=== PATIENT | male | born 1970 | race Caucasian/White ===

== ENCOUNTER 2017-07-08 19:44 | Emergency (ER) | payer MEDICARE, BC, MEDICAID ==
[~2017-07-08] VITALS: Ht 167.6 cm; Wt 68.0 kg
[~2017-07-08 19:44] MED LIST: ABILIF5PT PO; ACET500T68 PO; ACET650S5 PO; ALEN70SO4 PO; AMOX-362 PO; ATIVAN; BAC10 PO; BACDS PO; BACL-1 PO; BACLOFEN; BACOUD TP; CALC-1 PO; CALC-479 PO; CALC-515 PO; CEPH-13 PO; CEPH500C24 PO; CIPR-344 PO; CIPR500S3 PO; CITRUCEL; CLOB15CR22 TP; COD28PAS TP; DEN60I SUBQ; DEXL60CA6 PO; DILANTIN; DOCU-416 PO; DOCU50LI PO; DOCUSATE SODIUM; DULO60CA7; EMOL454O; EYE DROPS; FERR15DR22 PO; FERROUS SULFATE; FLU20 PO; FOL1 PO; FOLI-68 PO; FOLI0.4T56 PO; GOLYTE PO; GRANULEX; GUAI-537 PO; HYDR-4309 PO; HYDR45CR TOP; IBUP600T22 PO; IMI25 PO; LACT-213 PO; LAMO200T46 PO; LAMO25TA64 PO; LIDO20VI IJ; LOPE2CAP88 PO; LOR5 PO; LORA-1455 PO; LORA-630 PO; LYTE60SP MM; MENT118G TOP; METH454P5 PO; METH4TAB57 PO; NAPR220C11 PO; NITR-105 PO; OCEAN NASAL SPRAY; OMEP-125 PO; OMEP40CA48 PO; ONDA4TAB PO; ONDA4TAB9 PO; ONDA4TAB97 PO; OXY39T TD; OXYB10TA21 PO; OXYB5SYR7 PO; OXYBUTIN; PANT40TA65 PO; PETR99OI2 TP; PHEN200T32 PO; PHEN32.417 PO; PHENOBARB; POLY17PO25 PO; PROZAC; SALI44.34 MM; SODI30SP6 NS; SUCR1TAB85 PO; SYSTANEPT OD; TOLNAFTATE TOP; TOLT2TAB5 PO; TRA50 PO; TRAM-420 PO; TRAMADOL; TUMS; [UNRECOGNIZED DRUG - CODE] MM; [UNRECOGNIZED DRUG - CODE] PO; [UNRECOGNIZED DRUG - CODE] PO; [UNRECOGNIZED DRUG - CODE] PO; [UNRECOGNIZED DRUG - OTHER]; [UNRECOGNIZED DRUG - OTHER]
--- NOTE | 2017-07-08 19:47 | ER Report ---
History and Physical Time Seen By MD: 19:46 HPI/ROS CHIEF COMPLAINT: Urinary symptoms HISTORY OF PRESENT ILLNESS: 46-year-old male presents with urinary symptoms denies hematuria or back pain flank pain abdominal pain fevers Chills nausea or vomiting. He arrives in a wheelchair and has limited mobility of his lower extremities. REVIEW OF SYSTEMS: Respiratory: No cough, no dyspnea. Cardiovascular: No chest pain, no palpitations. Gastrointestinal: No vomiting, no abdominal pain. Musculoskeletal: No back pain. Allergies: Coded Allergies: divalproex sodium (Verified Allergy, Unknown, 05/09/17) Home Meds Active Scripts Sucralfate (CARAFATE) 1 Gm Tablet, 1 GM PO QID, #60 TAB Take before meals and at bedtime. Crush the tablet and mix with water before taking. Prov:CHRISTIAN BENAVIDES ORNAMENTAL METAL ERECTOR APPRENTICE 05/09/17 Reported Medications Docusate Sodium (SILACE) 50 Mg/5 Ml Liquid, 10 MG PO 02/21/17 Duloxetine HCl (Duloxetine HCl) 60 Mg Capsule.dr, 30 MG QDAY 02/21/17 Saliva Stimulant Agents Comb.3 (BIOTENE MOISTURIZING MOUTH) 44.3 Ml Ingalls, 44.3 ML MM, SPRAY 02/21/17 Oxybutynin Chloride (DITROPAN XL) 10 Mg Tab.er.24, 10 MG PO QDAY Y for BLADDER SPASMS, #30 TAB 11/13/16 Phenazopyridine Hcl (PHENAZOPYRIDINE HCL) 200 Mg Tablet, 200 MG PO TID Y for DISCOMFORT, #30 TAB 11/13/16 Docusate Sodium (COLACE) 100 Mg Capsule, 100 MG PO BID, #30 CAPSULE 11/13/16 Cod Liver Oil/Zinc Oxide (DESITIN DIAPER RASH 40% PASTE) 28 Gm Paste..g., 28 GM TP PRN 11/10/16 Lidocaine Hcl/Epinephrine (LIDOCAINE 2%-EPI 1:100,000) 20 Ml Vial, 15 ML IJ, VIAL 11/10/16 Polyethylene Glycol 3350 (MIRALAX) 17 Gm Powd.pack, 17 GM PO QDAY, PKT 11/10/16 Acetaminophen (TYLENOL EXTRA STRENGTH) 500 Mg Tablet, 500 MG PO, TAB 11/10/16 Dexlansoprazole (DEXILANT) 60 Mg Cap, 60 MG PO BID 11/10/16 Emollient Combination No.97 (Aquaphilic) 454 Gm Oint...g., QDAY 11/10/16 Polyeth Glycol/Propylene Glyco (SYSTANE 0.3-0.4% EYE DROPS) 0.05 Ml Soln, 0.05 ML OD DRY EYES 07/27/15 Docusate Sodium (SILACE) 50 Mg/5 Ml Liquid, 50 MG PO QDAY 07/27/15 Guaifenesin/Dm/Pseudoephedrine (ROBAFEN CF SYRUP) 118 Ml Syrup, 20 ML PO Y for COUGH 07/27/15 Sodium Chloride (SALINE NASAL SPRAY) 30 Ml Ingalls, 30 ML NS PRN Y for AD, SPRAY 07/27/15 Naproxen Sodium (NAPROXEN SODIUM) 220 Mg Capsule, 220 MG PO Q12H Y for PAIN, CAPSULE 07/27/15 Hydrocortisone Butyrate/Emoll (HYDROCORT BUTY 0.1% LIPID CRM) 45 Gm Cream..g., TOP Y for ITCHING 07/26/15 Lactose-Free Food (ENSURE LIQUID) 237 Ml Liquid, 237 ML PO DAILY 07/26/15 Clobetasol Propionate/Emoll (CLOBETASOL EMOLLIENT 0.05% CRM) 15 Gm Cream..g., 0 TP BID 07/26/15 Methylcellulose (With Sugar) (CITRUCEL POWDER) 454 Gm Powder, 454 GM PO QDAY 07/26/15 Aripiprazole (ABILIFY) 5 Mg Tablet, 5 MG PO QDAY, #10 TAB 07/26/15 Loperamide Hcl (LOPERAMIDE) 2 Mg Capsule, 2 MG PO Y for DIARRHEA, CAPSULE 07/26/15 Amoxicillin (AMOXICILLIN) 500 Mg Capsule, 4 CAP PO Q8H Y for TX, #15 CAPSULE 07/26/15 [Aftate] No Conflict Check, SPRAYS TOP Y for RASH 07/26/15 Denosumab (PROLIA) 60 Mg/1 Ml Injs, 60 MG SUBQ [id number] 10/15/14 Lorazepam (ATIVAN) 0.5 Mg Tablet, 0.5 MG PO Q4-6H Y for SEIZURE 10/15/14 Calcium Carbonate/Vitamin D3 (CALTRATE 600 + D TABLET) 1 Each Tablet, 1 EACH PO BID 10/15/14 Folic Acid (FOLIC ACID) 1 Mg Tablet, 1 MG PO QDAY, TAB 5/14/15 Menthol (BIOFREEZE) 118 Ml Gel..ml., 1 GEL TOP QDAY Y for pain 09/26/14 Baclofen (BACLOFEN) 10 Mg Tablet, 10 MG PO TID, #30 TAB TAKE 2 TABLETS BY MOUTH THREE TIMES A DAY 09/26/14 Bacitracin (BACITRACIN ZINC) 0.9 Gm Oint, 0.9 GM TP QDAY Y for wounds 09/26/14 Petrolatum,White (AQUAPHOR) 99 Gm Oint...g., 99 GM TP BID Y for dry skin 09/26/14 Acetaminophen (ACETAMINOPHEN) 650 Mg/20.3 Ml Solution, 650 MG PO Q4-6H Y for PAIN, ML 09/26/14 Saliva Stimulant Agents Comb.2 (BIOTENE ORALBALANCE) 44.3 Ml Liquid, 44.3 ML MM 04/30/13 Lamotrigine (LAMICTAL) 200 Mg Tablet, 300 MG PO BID 01/14/13 Oxybutynin (Oxytrol) 1 Patch.bwk Patch.tdsw, 1 PATCH.BWK TD, 0 Refills 06/26/11 Phenobarbital (Phenobarbital) 32.4 Mg Tablet, 1 TAB PO QAM, 0 Refills 06/26/11 Discontinued Reported Medications Nitrofurantoin Monohyd/M-Cryst (MACROBID 100 MG CAPSULE) 100 Mg Capsule, 100 MG PO BID for 5 Days, CAPSULE 11/13/16 Hydrocodone Bit/Acetaminophen (NORCO 5-325 TABLET) 1 Each Tablet, 1 EACH PO Q6H Y for PAIN, #20 TAB 11/13/16 Ferrous Sulfate (FERROUS SULFATE) 15 Mg/1 Ml Drops, PO 10/15/14 Fluoxetine Hcl (Prozac) 20 Mg Cap, 4 CAP PO QDAY, 0 Refills 06/26/11 Discontinued Scripts Omeprazole (OMEPRAZOLE) 40 Mg Capsule.dr, 40 MG PO QDAY, #30 CAP Prov:CHRISTIAN BENAVIDES ORNAMENTAL METAL ERECTOR APPRENTICE 05/09/17 Ondansetron Hcl (ZOFRAN) 4 Mg Tablet, 4 MG PO Q6H Y for NAUSEA/VOMITING, #20 Prov:JORGE MARIE DO 02/04/16 Hx Smoking: No Smoking Status: Never Smoker Exposure to Second Hand Smoke?: No Hx Substance Use Disorder: No Hx Alcohol Use: No Constitutional Vital Sign - Last 24 Hours 07/08/17 07/08/17 07/08/17 07/08/17 19:44 19:56 19:57 19:59 Temp 100.3 Pulse ??? 106 107 Resp 16 B/P (MAP) 134/83 134/83 (100) Pulse Ox 96 95 O2 Delivery Room Air 07/08/17 07/08/17 07/08/17 07/08/17 20:14 20:29 20:31 20:44 Pulse 98 100 105 Resp 18 13 27 B/P (MAP) 121/82 (95) Pulse Ox 93 94 94 07/08/17 07/08/17 07/08/17 07/08/17 20:59 21:00 21:14 21:29 Pulse 105 101 108 Resp 16 18 B/P (MAP) 123/80 (94) Pulse Ox 93 95 07/08/17 07/08/17 07/08/17 07/08/17 21:30 21:35 22:00 22:04 Temp 99.8 Pulse 114 B/P (MAP) 121/80 (94) 123/75 (91) Pulse Ox 87 07/08/17 07/08/17 07/08/17 22:05 22:30 22:35 Pulse 96 108 Resp 9 B/P (MAP) 136/73 (94) Pulse Ox 88 94 Intake and Output 07/08/17 07/08/17 07/09/17 15:00 23:00 07:00 Intake Total 1000 ml Balance 1000 ml Physical Exam General Appearance: The patient is alert, has no immediate need for airway protection and no current signs of toxicity. Appears in no acute distress Eyes: Pupils equal and round no injection. Respiratory: Chest is non tender, lungs are clear to auscultation. Cardiac: regular rate and rhythm no murmurs gallops or rubs Gastrointestinal: Abdomen is soft and non tender, no masses, bowel sounds normal. Musculoskeletal: Neck: Neck is supple and non tender. Extremities have full range of motion and are non tender. Skin: No rashes or lesions. Neuro: A baseline DIFFERENTIAL DIAGNOSIS: After history and physical exam differential diagnosis was considered for tract infection no signs of pyelo-, sepsis, urosepsis or other serious disease Medical Decision Making Data Points Result Diagram: 07/08/17202107/08/172021 Laboratory Hematology Test 07/08/17 20:22 07/08/17 21:30 07/08/17 21:45 Red Blood Count 4.13 M/uL (4.00-5.60) Mean Corpuscular Volume 83.4 fL (80.0-96.0) Mean Corpuscular Hemoglobin 27.5 pg (26.0-33.0) Mean Corpuscular Hemoglobin Concent 33.0 g/dL (32.0-36.0) Red Cell Distribution Width 13.8 % (11.5-14.5) Mean Platelet Volume 6.9 fL (7.2-11.1) Neutrophils (%) (Auto) 65.6 % (39.4-72.5) Lymphocytes (%) (Auto) 18.7 % (17.6-49.6) Monocytes (%) (Auto) 7.6 % (4.1-12.4) Eosinophils (%) (Auto) 7.3 % (0.4-6.7) Basophils (%) (Auto) 0.8 % (0.3-1.4) Nucleated RBC Relative Count (auto) 0.0 /100WBC Neutrophils # (Auto) 4.9 K/uL (2.0-7.4) Lymphocytes # (Auto) 1.4 K/uL (1.3-3.6) Monocytes # (Auto) 0.6 K/uL (0.3-1.0) Eosinophils # (Auto) 0.5 K/uL (0.0-0.5) Basophils # (Auto) 0.1 K/uL (0.0-0.1) Nucleated RBC Absolute Count (auto) 0.00 K/uL Sodium Level 138 mmol/L (137-145) Potassium Level 4.3 mmol/L (3.5-5.0) Chloride Level 103 mmol/L (98-107) Carbon Dioxide Level 27 mmol/L (22-30) Blood Urea Nitrogen 14 mg/dl (9-21) Creatinine 0.80 mg/dl (0.66-1.25) Glomerular Filtration Rate Calc > 60.0 Random Glucose 90 mg/dl (75-110) Calcium Level 8.2 mg/dl (8.4-10.2) Urine Color Yellow Urine Clarity Clear Urine pH 6.0 pH (4.8-9.5) Urine Specific Raymond 1.023 Urine Protein Negative mg/dL (NEGATIVE) Urine Glucose (UA) Negative mg/dL (NEGATIVE) Urine Ketones Negative mg/dL (NEGATIVE) Urine Blood Negative (NEGATIVE) Urine Nitrite Negative (NEGATIVE) Urine Bilirubin Negative (NEGATIVE) Urine Urobilinogen Negative mg/dL (0.2-1.9) Urine Leukocyte Esterase Negative (NEGATIVE) Urine RBC <1 /HPF (0-2/HPF) Urine WBC 2 /HPF (0-5/HPF) Urine Squamous Epithelial Cells None /LPF (NONE-FEW) Urine Bacteria Negative /HPF (NONE-FEW) Urine Mucus None /HPF (NONE-FEW) Stool Occult Blood (IFOB) Positive (NEGATIVE) Chemistry Test 07/08/17 20:22 07/08/17 21:30 07/08/17 21:45 White Blood Count 7.5 k/uL (4.5-11.0) Red Blood Count 4.13 M/uL (4.00-5.60) Hemoglobin 11.3 g/dL (14.0-18.0) Hematocrit 34.4 % (42.0-52.0) Mean Corpuscular Volume 83.4 fL (80.0-96.0) Mean Corpuscular Hemoglobin 27.5 pg (26.0-33.0) Mean Corpuscular Hemoglobin Concent 33.0 g/dL (32.0-36.0) Red Cell Distribution Width 13.8 % (11.5-14.5) Platelet Count 322 K/uL (150-450) Mean Platelet Volume 6.9 fL (7.2-11.1) Neutrophils (%) (Auto) 65.6 % (39.4-72.5) Lymphocytes (%) (Auto) 18.7 % (17.6-49.6) Monocytes (%) (Auto) 7.6 % (4.1-12.4) Eosinophils (%) (Auto) 7.3 % (0.4-6.7) Basophils (%) (Auto) 0.8 % (0.3-1.4) Nucleated RBC Relative Count (auto) 0.0 /100WBC Neutrophils # (Auto) 4.9 K/uL (2.0-7.4) Lymphocytes # (Auto) 1.4 K/uL (1.3-3.6) Monocytes # (Auto) 0.6 K/uL (0.3-1.0) Eosinophils # (Auto) 0.5 K/uL (0.0-0.5) Basophils # (Auto) 0.1 K/uL (0.0-0.1) Nucleated RBC Absolute Count (auto) 0.00 K/uL Glomerular Filtration Rate Calc > 60.0 Calcium Level 8.2 mg/dl (8.4-10.2) Urine Color Yellow Urine Clarity Clear Urine pH 6.0 pH (4.8-9.5) Urine Specific Raymond 1.023 Urine Protein Negative mg/dL (NEGATIVE) Urine Glucose (UA) Negative mg/dL (NEGATIVE) Urine Ketones Negative mg/dL (NEGATIVE) Urine Blood Negative (NEGATIVE) Urine Nitrite Negative (NEGATIVE) Urine Bilirubin Negative (NEGATIVE) Urine Urobilinogen Negative mg/dL (0.2-1.9) Urine Leukocyte Esterase Negative (NEGATIVE) Urine RBC <1 /HPF (0-2/HPF) Urine WBC 2 /HPF (0-5/HPF) Urine Squamous Epithelial Cells None /LPF (NONE-FEW) Urine Bacteria Negative /HPF (NONE-FEW) Urine Mucus None /HPF (NONE-FEW) Stool Occult Blood (IFOB) Positive (NEGATIVE) Urinalysis Test 07/08/17 21:30 Urine Color Yellow Urine Clarity Clear Urine pH 6.0 pH (4.8-9.5) Urine Specific Raymond 1.023 Urine Protein Negative mg/dL (NEGATIVE) Urine Glucose (UA) Negative mg/dL (NEGATIVE) Urine Ketones Negative mg/dL (NEGATIVE) Urine Blood Negative (NEGATIVE) Urine Nitrite Negative (NEGATIVE) Urine Bilirubin Negative (NEGATIVE) Urine Urobilinogen Negative mg/dL (0.2-1.9) Urine Leukocyte Esterase Negative (NEGATIVE) Urine RBC <1 /HPF (0-2/HPF) Urine WBC 2 /HPF (0-5/HPF) Urine Squamous Epithelial Cells None /LPF (NONE-FEW) Urine Bacteria Negative /HPF (NONE-FEW) Urine Mucus None /HPF (NONE-FEW) ED Course/Re-evaluation ED Course Plan of care agreed-upon prior to orders placed. 07/08/2017 10:51:35 pm cased discussed with Dr. Alfaro surgeon semiconductor assembler who agrees with plan for outpatient referral for endoscopy as needed given his guaiac positivity and hemoglobin dropped from 14-11 since May. This was discussed with the patient who agrees to contact Dr. Cano's office as directed as soon as possible. Vitals are stable for discharge. Lab called fungal culture will be done specimen not appropriate for staining ROCIO order will be canceled Re-evaluation 07/08/2017 9:59:53 pm patient doing fine no concerns or complaints VICTORIA was performed and stool was negative for melena sent to lab for guaiac testing. Urinalysis was reviewed fungal stain and culture added. Decision to Disposition Date: Jul 08, 2017 Decision to Disposition Time: 22:53 Depart Departure Latest Vital Signs Vital Signs Date Time Temp Pulse Resp B/P (MAP) Pulse Ox O2 Delivery O2 Flow Rate FiO2 07/08/17 22:35 108 9 94 07/08/17 22:30 136/73 (94) 07/08/17 22:04 99.8 07/08/17 19:56 Room Air Impression: Primary Impression: Occult GI bleeding Additional Impression: Dysuria Condition: Improved Disposition: HOME OR SELF-CARE Referrals: PATRICK JOSE DO (PCP) AMOS CANO MD 1 Day New Scripts Nitrofurantoin Monohyd/M-Cryst (MACROBID 100 MG CAPSULE) 100 Mg Capsule 100 MG PO BID for 10 Days, #20 CAPSULE Prov: MARILEE LEE MD 07/08/17 Patient Instructions: Gastrointestinal Bleeding (DC) Problem Qualifiers MARILEE LEE MD Jul 08, 2017 19:47
[2017-07-08] MEDS ORDERED: NS(*) 0.9% 1000 ML BAG 1,000 ML IV ONE (20:15)
[2017-07-08 20:35] LABS: PLATELET COUNT, AUTOMATED 322 K/uL (150-450)
[2017-07-08] MEDS ORDERED: NITR-105 PO (23:00)
[2017-07-08 23:11] VITALS: BP 138/82
== END 2017-07-08 23:22 | disposition home or self-care (01) ==
LOC: ER 19:55
DX: K92.2 Gastrointestinal hemorrhage, unspecified (principal)
CPT/HCPCS: 81001; 82274; 85025; 87252; 96360; 96361; 99284; J7030; 82310; 82374; 82435; 82565; 82947; 84132; 84295; 84520

== ENCOUNTER → 2017-07-16 | Outpatient (CLI) | payer MEDICARE, BC, MEDICAID ==
--- NOTE | 2017-07-16 23:14 | RADIOLOGY IMAGING REPORT ---
FACILITY: [facility] PATIENT NAME: Conner Dumont : 1970 MR: [id number] V: [id number] EXAM DATE: ORDERING PHYSICIAN: PATRICK JOSE TECHNOLOGIST: Location: Patient: Conner Dumont : 1970 Visit/Account:[id number] Date of Sevice: 07/16/2017 DEXA Scan Clinical history: Osteoporosis. Comparison: 08/02/2016 LUMBAR SPINE: The bone mineral density (BMD) measured from L1-L4 correlates with a Z-score -0.4 and a T-score of -1 .1 which is osteopenia as defined by the World Health Organization. The corresponding risk of fractu re in the lumbar spine is increased compared with a young adult reference population. Lumbar bone min eral density has increased by 1.2% compared to prior (change of 5% is considered significant). HIP: Bone mineral density (BMD) measured in the left total hip region correlates with a Z-score -1.9 and a T-score of -2.6 which is osteoporosis as defined by the World Health Organization. The correspondin g risk of fracture in the hip is increased compared with a young adult reference population. Hip david ne mineral density has decreased by 10.6% compared to prior. Bone mineral density (BMD) measured in the Femoral Neck region measures 0.727 g/cm2. Impression: 1. Lumbar spine: Osteopenia, no significant change.. 2. Left Hip: Osteoporosis. Hip bone mineral density has significantly decreased compared to prior. 3. Femoral Neck: Bone Mineral Density is 0.727 g/cm2 The next DEXA scan of this patient should include the following sites: L1-L4 and the left hip. FRAX? WHO Fracture Risk Assessment Tool link: <http://www.shef.ac.uk/FRAX/tool.jsp?[email or web address]> PLEASE NOTE: 1) The World Health Organization defines low BMD as follows: T-score Normal > -1 Osteopenia < -1 and > -2.5 Osteoporosis < -2.5 without fractures Established osteoporosis < -2.5 with fractures 2) In general, you may wish to consider: Diagnosis Treatment Follow-up DEXA Normal BMD Prevention 2-3 years Osteopenia Prevention/therapy 1-2 years Osteoporosis Therapy Yearly 3) Fracture risk estimated from the T-score is more accurate for vertebral fractures (often spontane ous) than for hip fractures. Report Dictated By: Kel Bateman MD at 07/16/2017 11:08 PM Report E-Signed By: Kel Bateman MD at 07/16/2017 11:10 PM WSN:[id number]
== END ==
LOC: RAD 07:35
PROVIDERS: ATTEND Family Medicine
DX: M81.8 Other osteoporosis without current pathological fracture (principal); M85.88 Other specified disorders of bone density and structure, other site
CPT/HCPCS: 77080

== ENCOUNTER 2017-07-29 04:03 | Emergency (ER) | payer MEDICARE, BC, MEDICAID ==
--- NOTE | 2017-07-29 04:19 | ER Report ---
History and Physical Time Seen By MD: 04:18 Hx. of Stated Complaint: PT HAD 4 SEIZURES. PT WAS GIVEN 0.5MG LORAZAPAM AROUND 01:00. LAST SEIZURE AROUND 25 MINUTES AGO. HPI/ROS CHIEF COMPLAINT: seizures HISTORY OF PRESENT ILLNESS: This is a 46 year old male. He has been having seizures tonight. 4 seizures since midnight, He has frequent partial seizures with twitching of his arms. He has had 4 grand mal seizures. After the first one , they gave 0.5mg of Ativan which is the protocol if this happens. However, that has not stopped the further seizures. With continued seizures, they are instructed to seek medical attention. It is estimated that breakthrough seizures happen about once a year. He has a headache, but that is normal after his seizures. He has no chest pain or trouble breathing. He has no sore throat, runny nose or cough recently. He denies any pain in his neck, back or extremities. He does indicated he has been having pain with urination. No problems with bowels. No report of fevers. No reported changes in any medications and no missed doses of his Lamictal or his Phenobarbital. There have been some concerns regarding urinary function in the recent past and there is a fungal culture pending at this time, time to completion unknown and can take weeks for this to be done. REVIEW OF SYSTEMS: As above. Allergies: Coded Allergies: divalproex sodium (Verified Allergy, Unknown, 07/29/17) Home Meds Active Scripts Lorazepam (ATIVAN) 0.5 Mg Tablet, 0.5 MG PO Q6H Y for SEIZURE, #12 TAB 0 Refills Prov:VALE MONTGOMERY MD 07/29/17 Cephalexin Monohydrate (CEPHALEXIN) 500 Mg Cap, 500 MG PO TID, #21 CAP 0 Refills Prov:VALE MONTGOMERY MD 07/29/17 Sucralfate (CARAFATE) 1 Gm Tablet, 1 GM PO QID, #60 TAB Take before meals and at bedtime. Crush the tablet and mix with water before taking. Prov:CHRISTIAN BENAVIDES WASHROOM ATTENDANT 05/09/17 Reported Medications Phenazopyridine Hcl (URINARY PAIN RELIEF) 95 Mg Tablet, 95 MG PO TID 07/29/17 Hydrocodone/Acetaminophen 10/300 MG/15 ML (Lortab 10 mg-300 mg/15 ml Elxr) 473 Ml Solution, 10 ML PO PRN 07/29/17 Oxybutynin Chloride (OXYBUTYNIN CHLORIDE) 5 Mg/5 Ml Syrup, 5 MG PO PRN 07/29/17 [Acetaminophen] No Conflict Check 07/29/17 Tramadol Hcl (TRAMADOL HCL) 50 Mg Tablet, 50 MG PO UNKNOWN, TAB 07/29/17 Lidocaine HCl/Pf (Lidocaine 100 mg/5 ml (2%) Syr) 100 Mg/5 Ml (2 %) Syringe, 15 ML PO 07/29/17 Ondansetron (ZOFRAN ODT) 4 Mg Tab.rapdis, 4 MG PO Q6H Y for NAUSEA, TAB.JIMMY 07/29/17 Amoxicillin (AMOXICILLIN) 500 Mg Capsule, 1 CAP PO PRN, #15 CAPSULE 07/29/17 Calcium Carbonate (TUMS) 300 Mg Tab.chew, 2 TAB PO PRN, TAB.CHEW 07/29/17 Duloxetine HCl (Duloxetine HCl) 60 Mg Capsule.dr, 30 MG QDAY 02/21/17 Saliva Stimulant Agents Comb.3 (BIOTENE MOISTURIZING MOUTH) 44.3 Ml [place], 44.3 ML MM, SPRAY 02/21/17 Cod Liver Oil/Zinc Oxide (DESITIN DIAPER RASH 40% PASTE) 28 Gm Paste..g., 28 GM TP PRN 11/10/16 Polyethylene Glycol 3350 (MIRALAX) 17 Gm Powd.pack, 17 GM PO QDAY, PKT 11/10/16 Dexlansoprazole (DEXILANT) 60 Mg Cap., 60 MG PO BID 11/10/16 Emollient Combination No.97 (Aquaphilic) 454 Gm Oint...g., QDAY 11/10/16 Polyeth Glycol/Propylene Glyco (SYSTANE 0.3-0.4% EYE DROPS) 0.05 Ml Soln, 0.05 ML OD DRY EYES 07/27/15 Docusate Sodium (SILACE) 50 Mg/5 Ml Liquid, 50 MG PO QDAY 07/27/15 Guaifenesin/Dm/Pseudoephedrine (ROBAFEN CF SYRUP) 118 Ml Syrup, 20 ML PO Y for COUGH 07/27/15 Sodium Chloride (SALINE NASAL SPRAY) 30 Ml [place], 30 ML NS PRN Y for AD, SPRAY 07/27/15 Naproxen Sodium (NAPROXEN SODIUM) 220 Mg Capsule, 220 MG PO Q12H Y for PAIN, CAPSULE 07/27/15 Hydrocortisone Butyrate/Emoll (HYDROCORT BUTY 0.1% LIPID CRM) 45 Gm Cream..g., TOP Y for ITCHING 07/26/15 Lactose-Free Food (ENSURE LIQUID) 237 Ml Liquid, 237 ML PO DAILY 07/26/15 Clobetasol Propionate/Emoll (CLOBETASOL EMOLLIENT 0.05% CRM) 15 Gm Cream..g., 0 TP BID 07/26/15 Aripiprazole (ABILIFY) 5 Mg Tablet, 5 MG PO QDAY, #10 TAB 07/26/15 Loperamide Hcl (LOPERAMIDE) 2 Mg Capsule, 2 MG PO Y for DIARRHEA, CAPSULE 07/26/15 [Aftate] No Conflict Check, SPRAYS TOP Y for RASH 07/26/15 Denosumab (PROLIA) 60 Mg/1 Ml Injs, 60 MG SUBQ [id number] 10/15/14 Lorazepam (ATIVAN) 0.5 Mg Tablet, 0.5 MG PO Q4-6H Y for SEIZURE 10/15/14 Calcium Carbonate/Vitamin D3 (CALTRATE 600 + D TABLET) 1 Each Tablet, 1 EACH PO BID 10/15/14 Folic Acid (FOLIC ACID) 1 Mg Tablet, 1 MG PO QDAY, TAB 10/15/14 Menthol (BIOFREEZE) 118 Ml Gel..ml., 1 GEL TOP QDAY Y for pain 09/26/14 Baclofen (BACLOFEN) 10 Mg Tablet, 10 MG PO TID, #30 TAB TAKE 2 TABLETS BY MOUTH THREE TIMES A DAY 09/26/14 Bacitracin (BACITRACIN ZINC) 0.9 Gm Oint, 0.9 GM TP QDAY Y for wounds 09/26/14 Acetaminophen (ACETAMINOPHEN) 650 Mg/20.3 Ml Solution, 650 MG PO Q4-6H Y for PAIN, ML 09/26/14 Lamotrigine (LAMICTAL) 200 Mg Tablet, 300 MG PO BID 01/14/13 Oxybutynin (Oxytrol) 1 Patch.bwk Patch.tdsw, 1 PATCH.BWK TD, 0 Refills 06/26/11 Phenobarbital (Phenobarbital) 32.4 Mg Tablet, 1 TAB PO QAM, 0 Refills 1/23/12 Discontinued Reported Medications Docusate Sodium (SILACE) 50 Mg/5 Ml Liquid, 10 MG PO 02/21/17 Oxybutynin Chloride (DITROPAN XL) 10 Mg Tab.er.24, 10 MG PO QDAY Y for BLADDER SPASMS, #30 TAB 11/13/16 Phenazopyridine Hcl (PHENAZOPYRIDINE HCL) 200 Mg Tablet, 200 MG PO TID Y for DISCOMFORT, #30 TAB 11/13/16 Docusate Sodium (COLACE) 100 Mg Capsule, 100 MG PO BID, #30 CAPSULE 11/13/16 Lidocaine Hcl/Epinephrine (LIDOCAINE 2%-EPI 1:100,000) 20 Ml Vial, 15 ML IJ, VIAL 11/10/16 Acetaminophen (TYLENOL EXTRA STRENGTH) 500 Mg Tablet, 500 MG PO, TAB 11/10/16 Methylcellulose (With Sugar) (CITRUCEL POWDER) 454 Gm Powder, 454 GM PO QDAY 07/26/15 Amoxicillin (AMOXICILLIN) 500 Mg Capsule, 4 CAP PO Q8H Y for ND, #15 CAPSULE 07/26/15 Petrolatum,White (AQUAPHOR) 99 Gm Oint...g., 99 GM TP BID Y for dry skin 09/26/14 Saliva Stimulant Agents Comb.2 (BIOTENE ORALBALANCE) 44.3 Ml Liquid, 44.3 ML MM 04/30/13 Discontinued Scripts Nitrofurantoin Monohyd/M-Cryst (MACROBID 100 MG CAPSULE) 100 Mg Capsule, 100 MG PO BID for 10 Days, #20 CAPSULE Prov:MARILEE LEE MD 07/08/17 Past Medical/Surgical History Cerebal palsy, known seizure disorder. Reviewed Nurses Notes: Yes Hx Smoking: No Smoking Status: Never Smoker Exposure to Second Hand Smoke?: No Hx Substance Use Disorder: No Hx Alcohol Use: No Constitutional Vital Sign - Last 24 Hours 07/29/17 07/29/17 07/29/17 07/29/17 04:09 04:10 04:18 05:18 Temp 98.9 Pulse 122 115 109 Resp 18 B/P (MAP) 135/66 (89) 135/66 Pulse Ox 91 95 93 O2 Delivery Room Air 07/29/17 07/29/17 07/29/17 05:33 05:48 05:57 Pulse 124 115 B/P (MAP) 106/91 (96) Pulse Ox 90 95 Physical Exam General Appearance: [The patient is alert.] [No immediate need for airway protection.] [No acute distress.] [Non-toxic in appearance.] [ ] [Eyes:] [Pupils are equal, round.] [Reactive to light.] [No pallor, injection or icterus.] [Extraocular movements are intact.] [ ] [ENT:] [Mucous membranes are moist.] [Normal oral mucosa.] [Posterior oropharynx is normal.] [Normal nasal mucosa.] [Normal tympanic membranes and canals.] [ ] Neck: [Supple and non tender.] [No lymphadenopathy.] Respiratory: [Breathing easily and unlabored.] [Lungs are clear to auscultation. ] [There are no retractions or accessory muscle use.] Cardiovascular: [Regular rate and rhythm.] [No murmurs, gallops or rubs.] [ Normal capillary refill.] [No edema.] [No carotid bruits.] [ ] Gastrointestinal: [Abdomen is soft and non tender.] [Nondistended.] [No rebound or guarding.] [No masses or organomegaly.] [Normal active bowel sounds. ] [No costovertebral angle tenderness with percussion.] [Genitourinary:] [ ] [Neurological:] [Alert and oriented x3.] [Cranial nerves II through XII show no acute deficits on my exam.] [No focal neurologic deficits in the extremities.] [ ] [Skin:] [Warm and dry.] [No rashes.] [Musculoskeletal:] [Extremities are nontender.] [Full range of motion.] [No tenderness in palpation of the cervical, thoracic and lumbar spine.] [ ] [DIFFERENTIAL DIAGNOSIS: After history and physical exam, differential diagnosis was considered for] [ ] Medical Decision Making Data Points Result Diagram: 07/29/1743407/29/17 043 Laboratory Hematology Test 07/29/17 04:35 07/29/17 05:07 Red Blood Count 4.29 M/uL (4.00-5.60) Mean Corpuscular Volume 77.5 fL (80.0-96.0) Mean Corpuscular Hemoglobin 25.0 pg (26.0-33.0) Mean Corpuscular Hemoglobin Concent 32.2 g/dL (32.0-36.0) Red Cell Distribution Width 16.4 % (11.5-14.5) Mean Platelet Volume 6.9 fL (7.2-11.1) Neutrophils (%) (Auto) 72.2 % (39.4-72.5) Lymphocytes (%) (Auto) 18.0 % (17.6-49.6) Monocytes (%) (Auto) 5.0 % (4.1-12.4) Eosinophils (%) (Auto) 4.0 % (0.4-6.7) Basophils (%) (Auto) 0.8 % (0.3-1.4) Nucleated RBC Relative Count (auto) 0.0 /100WBC Neutrophils # (Auto) 5.4 K/uL (2.0-7.4) Lymphocytes # (Auto) 1.3 K/uL (1.3-3.6) Monocytes # (Auto) 0.4 K/uL (0.3-1.0) Eosinophils # (Auto) 0.3 K/uL (0.0-0.5) Basophils # (Auto) 0.1 K/uL (0.0-0.1) Nucleated RBC Absolute Count (auto) 0.00 K/uL Sodium Level 140 mmol/L (137-145) Potassium Level 4.1 mmol/L (3.5-5.0) Chloride Level 104 mmol/L (98-107) Carbon Dioxide Level 25 mmol/L (22-30) Blood Urea Nitrogen 14 mg/dl (9-21) Creatinine 0.70 mg/dl (0.66-1.25) Glomerular Filtration Rate Calc > 60.0 Random Glucose 105 mg/dl (75-110) Calcium Level 8.8 mg/dl (8.4-10.2) Total Bilirubin 0.2 mg/dl (0.2-1.3) Aspartate Amino Transf (AST/SGOT) 27 U/L (0-35) Alanine Aminotransferase (ALT/SGPT) 39 U/L (0-56) Alkaline Phosphatase 65 U/L (0-126) Total Protein 6.3 gm/dl (6.3-8.2) Albumin 3.3 g/dl (3.5-5.0) Urine Color Yellow Urine Clarity Cloudy Urine pH 6.0 pH (4.8-9.5) Urine Specific [place] 1.023 Urine Protein Negative mg/dL (NEGATIVE) Urine Glucose (UA) Negative mg/dL (NEGATIVE) Urine Ketones Negative mg/dL (NEGATIVE) Urine Blood Negative (NEGATIVE) Urine Nitrite Negative (NEGATIVE) Urine Bilirubin Negative (NEGATIVE) Urine Urobilinogen 2.0 mg/dL (0.2-1.9) Urine Leukocyte Esterase Negative (NEGATIVE) Urine RBC None /HPF (0-2/HPF) Urine WBC 3 /HPF (0-5/HPF) Urine Squamous Epithelial Cells None /LPF (</=FEW) Urine Amorphous Crystals Few /HPF Urine Bacteria Negative /HPF (NONE-FEW) Urine Mucus Few /HPF (NONE-FEW) Chemistry Test 07/29/17 04:35 07/29/17 05:07 White Blood Count 7.5 k/uL (4.5-11.0) Red Blood Count 4.29 M/uL (4.00-5.60) Hemoglobin 10.7 g/dL (14.0-18.0) Hematocrit 33.3 % (42.0-52.0) Mean Corpuscular Volume 77.5 fL (80.0-96.0) Mean Corpuscular Hemoglobin 25.0 pg (26.0-33.0) Mean Corpuscular Hemoglobin Concent 32.2 g/dL (32.0-36.0) Red Cell Distribution Width 16.4 % (11.5-14.5) Platelet Count 393 K/uL (150-450) Mean Platelet Volume 6.9 fL (7.2-11.1) Neutrophils (%) (Auto) 72.2 % (39.4-72.5) Lymphocytes (%) (Auto) 18.0 % (17.6-49.6) Monocytes (%) (Auto) 5.0 % (4.1-12.4) Eosinophils (%) (Auto) 4.0 % (0.4-6.7) Basophils (%) (Auto) 0.8 % (0.3-1.4) Nucleated RBC Relative Count (auto) 0.0 /100WBC Neutrophils # (Auto) 5.4 K/uL (2.0-7.4) Lymphocytes # (Auto) 1.3 K/uL (1.3-3.6) Monocytes # (Auto) 0.4 K/uL (0.3-1.0) Eosinophils # (Auto) 0.3 K/uL (0.0-0.5) Basophils # (Auto) 0.1 K/uL (0.0-0.1) Nucleated RBC Absolute Count (auto) 0.00 K/uL Glomerular Filtration Rate Calc > 60.0 Calcium Level 8.8 mg/dl (8.4-10.2) Total Bilirubin 0.2 mg/dl (0.2-1.3) Aspartate Amino Transf (AST/SGOT) 27 U/L (0-35) Alanine Aminotransferase (ALT/SGPT) 39 U/L (0-56) Alkaline Phosphatase 65 U/L (0-126) Total Protein 6.3 gm/dl (6.3-8.2) Albumin 3.3 g/dl (3.5-5.0) Urine Color Yellow Urine Clarity Cloudy Urine pH 6.0 pH (4.8-9.5) Urine Specific [place] 1.023 Urine Protein Negative mg/dL (NEGATIVE) Urine Glucose (UA) Negative mg/dL (NEGATIVE) Urine Ketones Negative mg/dL (NEGATIVE) Urine Blood Negative (NEGATIVE) Urine Nitrite Negative (NEGATIVE) Urine Bilirubin Negative (NEGATIVE) Urine Urobilinogen 2.0 mg/dL (0.2-1.9) Urine Leukocyte Esterase Negative (NEGATIVE) Urine RBC None /HPF (0-2/HPF) Urine WBC 3 /HPF (0-5/HPF) Urine Squamous Epithelial Cells None /LPF (</=FEW) Urine Amorphous Crystals Few /HPF Urine Bacteria Negative /HPF (NONE-FEW) Urine Mucus Few /HPF (NONE-FEW) Toxicology Test 07/29/17 04:35 Urinalysis Test 07/29/17 05:07 Urine Color Yellow Urine Clarity Cloudy Urine pH 6.0 pH (4.8-9.5) Urine Specific [place] 1.023 Urine Protein Negative mg/dL (NEGATIVE) Urine Glucose (UA) Negative mg/dL (NEGATIVE) Urine Ketones Negative mg/dL (NEGATIVE) Urine Blood Negative (NEGATIVE) Urine Nitrite Negative (NEGATIVE) Urine Bilirubin Negative (NEGATIVE) Urine Urobilinogen 2.0 mg/dL (0.2-1.9) Urine Leukocyte Esterase Negative (NEGATIVE) Urine RBC None /HPF (0-2/HPF) Urine WBC 3 /HPF (0-5/HPF) Urine Squamous Epithelial Cells None /LPF (</=FEW) Urine Amorphous Crystals Few /HPF Urine Bacteria Negative /HPF (NONE-FEW) Urine Mucus Few /HPF (NONE-FEW) ED Course/Re-evaluation Clinical Indication for ER IV: IV Access ED Course The patient continued to have some arm jerking at times during the ER visit, but no further grand mal seizures. He has dysuria, and a few cellular changes on the urine. We will get a urine culture. Other labs unremarkable. Will continue with a scheduled dose of ativan over the weekend, every 6 hours, to minimize the jerking or partial seizures. Lamictal level pending. Will begin Cephalexin for possible urinary tract infection. Unsure if this is really the cause, but based on available information, history, physical and labs, this appears the most likely cause. We discussed performing a CT scan of the head, but deferred at this time, but consider if continued seizures. Recommend re- evaluation after the with primary care and recommended contacting his neurologist on Sunday for further guidance on any medication adjustments. Return to the ER for further grand mal seizure activity. Decision to Disposition Date: Jul 29, 2017 Decision to Disposition Time: 05:56 Depart Departure Latest Vital Signs Vital Signs Date Time Temp Pulse Resp B/P (MAP) Pulse Ox O2 Delivery O2 Flow Rate FiO2 07/29/17 05:57 106/91 (96) 07/29/17 05:48 115 95 07/29/17 04:10 98.9 18 Room Air Impression: Primary Impression: Breakthrough seizure Additional Impression: Urinary tract infection Referrals: PATRICK JOSE DO (PCP) New Scripts Lorazepam (ATIVAN) 0.5 Mg Tablet 0.5 MG PO Q6H Y for SEIZURE, #12 TAB 0 Refills Prov: VALE MONTGOMERY MD 07/29/17 Cephalexin Monohydrate (CEPHALEXIN) 500 Mg Cap 500 MG PO TID, #21 CAP 0 Refills Prov: VALE MONTGOMERY MD 07/29/17 Patient Instructions: Recurrent Seizures in Adults (ED) Additional Instructions: With the painful urination and the small changes noted on urinalysis, we think that a urinary infection is the most likely cause of breakthrough seizures. We are going to run a urine culture, but in the meantime, start treatment with Cephalexin 500mg three times a day. Will given scheduled doses of Ativan over the next 24 hours. Take Ativan 0.5mg every 6 hours today. If grand mal seizures continue, then repeat evaluation here in the ER would be needed. If still having partial seizures, call and arrange follow-up with neurology on Sunday. Problem Qualifiers Additional Impression: Urinary tract infection Urinary tract infection type: acute cystitis Hematuria presence: without hematuria Qualified Codes: N30.00 - Acute cystitis without hematuria VALE MONTGOMERY MD Jul 29, 2017 04:18
[2017-07-29 04:53] LABS: PLATELET COUNT, AUTOMATED 393 K/uL (150-450)
[2017-07-29] MEDS ORDERED: CALC-521 PO (04:53)
[2017-07-29] MEDS ORDERED: AMOX-362 PO (04:53)
[2017-07-29] MEDS ORDERED: OXYB5SYR PO (04:53)
[2017-07-29] MEDS ORDERED: LIDO100S11 PO (04:53)
[2017-07-29] MEDS ORDERED: ONDA4TAB PO (04:53)
[2017-07-29] MEDS ORDERED: TRAM-420 PO (04:53)
[2017-07-29] MEDS ORDERED: ACETAMINOPHEN (04:53)
[2017-07-29] MEDS ORDERED: PHEN95TA PO (04:53)
[2017-07-29] MEDS ORDERED: HYDR473S9 PO (04:53)
[2017-07-29] MEDS ORDERED: LORazepam 2 MG/ML VIAL IVP ONE (05:50)
[2017-07-29] MEDS ORDERED: CEPHALEXIN MONO 500 MG CAP PO ONE (05:55)
[2017-07-29 05:57] VITALS: BP 106/91
[2017-07-29] MEDS ORDERED: LORA-1455 PO (06:03)
[2017-07-29] MEDS ORDERED: CEPH500C24 PO (06:03)
== END 2017-07-29 06:16 | disposition home or self-care (01) ==
LOC: ER 04:23
DX: G40.909 Epilepsy, unspecified, not intractable, without status epilepticus (principal); N30.00 Acute cystitis without hematuria
CPT/HCPCS: 80175; 81001; 85025; 96374; 96375; 99283; A9270; J2060; 82040; 82247; 82310; 82374; 82435; 82565; 82947; 84075; 84132; 84155; 84295; 84450; 84460; 84520

== ENCOUNTER → 2017-08-21 | Outpatient (REF) | payer MEDICARE, BC, MEDICAID ==
[~2017-08-21] MED LIST changes: +ACETAMINOPHEN; +CALC-521 PO; +HYDR473S9 PO; +LIDO100S11 PO; +OXYB5SYR PO; +PHEN95TA PO
== END ==
LOC: ZZSENDIN 15:26
PROVIDERS: ATTEND Urology
DX: N39.0 Urinary tract infection, site not specified (principal); N39.3 Stress incontinence (female) (male)
CPT/HCPCS: 87088

== ENCOUNTER → 2017-08-23 | Outpatient (CLI) | payer MEDICARE, BC, MEDICAID ==
[~2017-08-23] MED LIST changes: +DENOSUMAB 60 MG/1 ML SYR SUBQ ONE
[2017-08-23 09:11] VITALS: BP 115/76
== END ==
LOC: SPU 07:42
PROVIDERS: ATTEND Nurse Practitioner Primary Care
DX: M81.8 Other osteoporosis without current pathological fracture (principal)
CPT/HCPCS: 96372; J0897

== ENCOUNTER 2017-10-09 10:50 | Emergency (ER) | payer MEDICARE, BC, MEDICAID ==
[~2017-10-09 10:50] MED LIST changes: -DENOSUMAB 60 MG/1 ML SYR SUBQ ONE
--- NOTE | 2017-10-09 11:03 | ER Report ---
History and Physical Time Seen By MD: 11:03 Hx. of Stated Complaint: CP REPORTS SEIZURE ACTIVITY SINCE 0700, 0.5 ATIVAN PO ADMIN @0700. PT STILL HAVING SEIZURE ACTIVITY HPI/ROS CHIEF COMPLAINT: Seizure HISTORY OF PRESENT ILLNESS: 47-year-old male patient presents to emergency room with complaint of seizure. Patient is a resident of the [facility]. States that he started having seizures at 7:00 this morning. They did give him 0.5 mg of Ativan orally. They state that never seemed to stop the seizures, however it seemed to decrease for approximately 20 minutes. They have a protocol that he is to be evaluated in the emergency room if his seizures last longer than 2 hours. Caregiver states that patient did have diarrhea over the weekend, she denies having any fevers or chills. They state that he has not missed any medications. Seizures are described as jerking of the right upper extremity, there is no loss of consciousness. REVIEW OF SYSTEMS: Respiratory: No cough, no dyspnea. Cardiovascular: No chest pain, no palpitations. Gastrointestinal: As noted above Musculoskeletal: No back pain. Allergies: Coded Allergies: divalproex sodium (Verified Allergy, Unknown, 07/29/17) Home Meds Active Scripts Ondansetron (ZOFRAN ODT) 4 Mg Tab.rapdis, 4 MG PO Q6H Y for NAUSEA/VOMITING, # 20 TAB.JIMMY Prov:CHRISTIAN BENAVIDES 10/09/17 Sulfamethoxazole/Trimet 800-160 Mg Tab (BACTRIM DS TABLET) 1 Each Tablet, 1 TAB PO Q12H, #14 TAB Prov:CHRISTIAN BENAVIDES 10/09/17 Levetiracetam (KEPPRA) 1,000 Mg Tablet, 1000 MG PO BID, #60 TAB Prov:CHRISTIAN BENAVIDES 10/09/17 Lorazepam (ATIVAN) 0.5 Mg Tablet, 0.5 MG PO Q6H Y for SEIZURE, #12 TAB 0 Refills Prov:VALE MONTGOMERY MD 07/29/17 Cephalexin Monohydrate (CEPHALEXIN) 500 Mg Cap, 500 MG PO TID, #21 CAP 0 Refills Prov:VALE MONTGOMERY MD 07/29/17 Sucralfate (CARAFATE) 1 Gm Tablet, 1 GM PO QID, #60 TAB Take before meals and at bedtime. Crush the tablet and mix with water before taking. Prov:CHRISTIAN BENAVIDES PROCUREMENT COORDINATOR 05/09/17 Reported Medications Phenazopyridine Hcl (URINARY PAIN RELIEF) 95 Mg Tablet, 95 MG PO TID 07/29/17 Hydrocodone/Acetaminophen 10/300 MG/15 ML (Lortab 10 mg-300 mg/15 ml Elxr) 473 Ml Solution, 10 ML PO PRN 07/29/17 Oxybutynin Chloride (OXYBUTYNIN CHLORIDE) 5 Mg/5 Ml Syrup, 5 MG PO PRN 07/29/17 [Acetaminophen] No Conflict Check 07/29/17 Tramadol Hcl (TRAMADOL HCL) 50 Mg Tablet, 50 MG PO UNKNOWN, TAB 07/29/17 Lidocaine HCl/Pf (Lidocaine 100 mg/5 ml (2%) Syr) 100 Mg/5 Ml (2 %) Syringe, 15 ML PO 07/29/17 Ondansetron (ZOFRAN ODT) 4 Mg Tab.rapdis, 4 MG PO Q6H Y for NAUSEA, TAB.JIMMY 07/29/17 Amoxicillin (AMOXICILLIN) 500 Mg Capsule, 1 CAP PO PRN, #15 CAPSULE 07/29/17 Calcium Carbonate (TUMS) 300 Mg Tab.chew, 2 TAB PO PRN, TAB.CHEW 07/29/17 Duloxetine HCl (Duloxetine HCl) 60 Mg Capsule.dr, 30 MG QDAY 02/21/17 Saliva Stimulant Agents Comb.3 (BIOTENE MOISTURIZING MOUTH) 44.3 Ml [place], 44.3 ML MM, SPRAY 02/21/17 Cod Liver Oil/Zinc Oxide (DESITIN DIAPER RASH 40% PASTE) 28 Gm Paste..g., 28 GM TP PRN 11/10/16 Polyethylene Glycol 3350 (MIRALAX) 17 Gm Powd.pack, 17 GM PO QDAY, PKT 11/10/16 Dexlansoprazole (DEXILANT) 60 Mg Cap., 60 MG PO BID 11/10/16 Emollient Combination No.97 (Aquaphilic) 454 Gm Oint...g., QDAY 11/10/16 Polyeth Glycol/Propylene Glyco (SYSTANE 0.3-0.4% EYE DROPS) 0.05 Ml Soln, 0.05 ML OD DRY EYES 07/27/15 Docusate Sodium (SILACE) 50 Mg/5 Ml Liquid, 50 MG PO QDAY 07/27/15 Guaifenesin/Dm/Pseudoephedrine (ROBAFEN CF SYRUP) 118 Ml Syrup, 20 ML PO Y for COUGH 07/27/15 Sodium Chloride (SALINE NASAL SPRAY) 30 Ml [place], 30 ML NS PRN Y for AD, SPRAY 07/27/15 Naproxen Sodium (NAPROXEN SODIUM) 220 Mg Capsule, 220 MG PO Q12H Y for PAIN, CAPSULE 07/27/15 Hydrocortisone Butyrate/Emoll (HYDROCORT BUTY 0.1% LIPID CRM) 45 Gm Cream..g., TOP Y for ITCHING 07/26/15 Lactose-Free Food (ENSURE LIQUID) 237 Ml Liquid, 237 ML PO DAILY 07/26/15 Clobetasol Propionate/Emoll (CLOBETASOL EMOLLIENT 0.05% CRM) 15 Gm Cream..g., 0 TP BID 07/26/15 Aripiprazole (ABILIFY) 5 Mg Tablet, 5 MG PO QDAY, #10 TAB 07/26/15 Loperamide Hcl (LOPERAMIDE) 2 Mg Capsule, 2 MG PO Y for DIARRHEA, CAPSULE 07/26/15 [Aftate] No Conflict Check, SPRAYS TOP Y for RASH 07/26/15 Denosumab (PROLIA) 60 Mg/1 Ml Injs, 60 MG SUBQ [id number] 10/15/14 Lorazepam (ATIVAN) 0.5 Mg Tablet, 0.5 MG PO Q4-6H Y for SEIZURE 10/15/14 Calcium Carbonate/Vitamin D3 (CALTRATE 600 + D TABLET) 1 Each Tablet, 1 EACH PO BID 10/15/14 Folic Acid (FOLIC ACID) 1 Mg Tablet, 1 MG PO QDAY, TAB 10/15/14 Menthol (BIOFREEZE) 118 Ml Gel..ml., 1 GEL TOP QDAY Y for pain 09/26/14 Baclofen (BACLOFEN) 10 Mg Tablet, 10 MG PO TID, #30 TAB TAKE 2 TABLETS BY MOUTH THREE TIMES A DAY 09/26/14 Bacitracin (BACITRACIN ZINC) 0.9 Gm Oint, 0.9 GM TP QDAY Y for wounds 09/26/14 Acetaminophen (ACETAMINOPHEN) 650 Mg/20.3 Ml Solution, 650 MG PO Q4-6H Y for PAIN, ML 09/26/14 Lamotrigine (LAMICTAL) 200 Mg Tablet, 300 MG PO BID 01/14/13 Oxybutynin (Oxytrol) 1 Patch.bwk Patch.tdsw, 1 PATCH.BWK TD, 0 Refills 06/26/11 Phenobarbital (Phenobarbital) 32.4 Mg Tablet, 1 TAB PO QAM, 0 Refills 06/26/11 Past Medical/Surgical History Patient has past medical history of cerebral palsy, seizures, reflux, hiatal hernia, scoliosis, osteoporosis, depression. Patient has surgical history of cyst removed from right forearm, adenoidectomy, right hip replacement, abductor release, bone graft. Reviewed Nurses Notes: Yes Hx Smoking: No Smoking Status: Never Smoker Exposure to Second Hand Smoke?: No Hx Substance Use Disorder: No Hx Alcohol Use: No Constitutional Vital Sign - Last 24 Hours 10/09/17 10/09/17 10/09/17 10/09/17 10:57 10:58 11:05 11:20 Temp 99.0 Pulse 102 113 116 Resp 18 10 B/P (MAP) 118/71 (87) 118/71 Pulse Ox 91 92 O2 Delivery Room Air 10/09/17 10/09/17 10/09/17 10/09/17 11:30 11:35 11:50 11:55 Pulse 110 109 108 Resp 28 13 47 B/P (MAP) 119/75 (90) Pulse Ox 91 90 90 10/09/17 10/09/17 10/09/17 10/09/17 12:08 12:10 12:25 12:30 Pulse 120 118 Resp 12 12 B/P (MAP) 119/75 (90) 107/69 (82) Pulse Ox 92 92 10/09/17 10/09/17 10/09/17 10/09/17 12:40 12:55 13:00 13:10 Pulse 107 92 117 Resp 12 14 18 B/P (MAP) 119/69 (86) Pulse Ox 89 90 92 10/09/17 10/09/17 10/09/17 10/09/17 13:25 13:30 13:35 13:50 Pulse 124 116 119 Resp 27 27 11 B/P (MAP) 119/73 (88) Pulse Ox 91 92 91 10/09/17 10/09/17 10/09/17 10/09/17 14:00 14:05 14:10 14:25 Pulse 115 115 125 Resp 24 19 23 B/P (MAP) 106/80 (89) Pulse Ox 91 92 91 10/09/17 10/09/17 10/09/17 10/09/17 14:30 14:40 14:55 15:00 Pulse 124 121 Resp 10 9 B/P (MAP) 128/58 (81) 104/75 (85) Pulse Ox 89 90 10/09/17 10/09/17 10/09/17 10/09/17 15:10 15:15 15:20 15:25 Pulse 113 120 116 120 Resp 12 21 13 24 Pulse Ox 91 89 88 90 Intake and Output 10/09/17 10/09/17 10/10/17 14:59 22:59 06:59 Intake Total 1100 ml Balance 1100 ml Physical Exam General Appearance: The patient is alert, has no immediate need for airway protection and no current signs of toxicity. ENT: Tympanic membranes are pearly-myers, auditory canals are patent, mucous membranes are moist. Respiratory: Chest is non tender, lungs are clear to auscultation. Cardiac: regular rate and rhythm Gastrointestinal: Abdomen is soft and non tender, no masses, bowel sounds normal. Musculoskeletal: Neck: Neck is supple and non tender. Extremities have full range of motion and are non tender. Skin: No rashes or lesions. Neuro: Patient is alert and oriented, he does respond to questions, he does have intermittent jerking of the right arm, there is no loss consciousness and there is no postictal phase. DIFFERENTIAL DIAGNOSIS: After history and physical exam differential diagnosis was considered for seizure, electrolyte imbalance, infectious process. Medical Decision Making Data Points Result Diagram: 10/09/17 1128 10/09/17 1128 Laboratory Hematology Test 10/09/17 11:28 10/09/17 11:30 Red Blood Count 4.93 M/uL (4.00-5.60) Mean Corpuscular Volume 64.9 fL (80.0-96.0) Mean Corpuscular Hemoglobin 20.8 pg (26.0-33.0) Mean Corpuscular Hemoglobin Concent 32.1 g/dL (32.0-36.0) Red Cell Distribution Width 17.5 % (11.5-14.5) Mean Platelet Volume 7.1 fL (7.2-11.1) Neutrophils (%) (Auto) 79.8 % (39.4-72.5) Lymphocytes (%) (Auto) 13.5 % (17.6-49.6) Monocytes (%) (Auto) 5.4 % (4.1-12.4) Eosinophils (%) (Auto) 0.7 % (0.4-6.7) Basophils (%) (Auto) 0.6 % (0.3-1.4) Nucleated RBC Relative Count (auto) 0.0 /100WBC Neutrophils # (Auto) 7.8 K/uL (2.0-7.4) Lymphocytes # (Auto) 1.3 K/uL (1.3-3.6) Monocytes # (Auto) 0.5 K/uL (0.3-1.0) Eosinophils # (Auto) 0.1 K/uL (0.0-0.5) Basophils # (Auto) 0.1 K/uL (0.0-0.1) Nucleated RBC Absolute Count (auto) 0.00 K/uL Peripheral Blood Smear Yes Y/N Sodium Level 142 mmol/L (137-145) Potassium Level 4.2 mmol/L (3.5-5.0) Chloride Level 105 mmol/L (98-107) Carbon Dioxide Level 25 mmol/L (22-30) Blood Urea Nitrogen 16 mg/dl (9-21) Creatinine 0.80 mg/dl (0.66-1.25) Glomerular Filtration Rate Calc > 60.0 Random Glucose 105 mg/dl (75-110) Calcium Level 9.4 mg/dl (8.4-10.2) Magnesium Level 2.1 mg/dl (1.7-2.2) Total Bilirubin 0.2 mg/dl (0.2-1.3) Aspartate Amino Transf (AST/SGOT) 27 U/L (0-35) Alanine Aminotransferase (ALT/SGPT) 26 U/L (0-56) Alkaline Phosphatase 77 U/L (0-126) Total Protein 6.7 gm/dl (6.3-8.2) Albumin 3.8 g/dl (3.5-5.0) Urine Color Yellow Urine Clarity Cloudy Urine pH 5.0 pH (4.8-9.5) Urine Specific Amorita 1.021 Urine Protein Negative mg/dL (NEGATIVE) Urine Glucose (UA) Negative mg/dL (NEGATIVE) Urine Ketones Trace mg/dL (NEGATIVE) Urine Blood Negative (NEGATIVE) Urine Nitrite Negative (NEGATIVE) Urine Bilirubin Negative (NEGATIVE) Urine Urobilinogen Negative mg/dL (0.2-1.9) Urine Leukocyte Esterase Negative (NEGATIVE) Urine RBC 1 /HPF (0-2/HPF) Urine WBC 23 /HPF (0-5/HPF) Urine Squamous Epithelial Cells None /LPF (</=FEW) Urine Bacteria Few /HPF (NONE-FEW) Urine Mucus None /HPF (NONE-FEW) Whole Blood Glucose 112 mg/DL (75-110) Chemistry Test 10/09/17 11:28 10/09/17 11:30 White Blood Count 9.8 k/uL (4.5-11.0) Red Blood Count 4.93 M/uL (4.00-5.60) Hemoglobin 10.3 g/dL (14.0-18.0) Hematocrit 32.0 % (42.0-52.0) Mean Corpuscular Volume 64.9 fL (80.0-96.0) Mean Corpuscular Hemoglobin 20.8 pg (26.0-33.0) Mean Corpuscular Hemoglobin Concent 32.1 g/dL (32.0-36.0) Red Cell Distribution Width 17.5 % (11.5-14.5) Platelet Count 321 K/uL (150-450) Mean Platelet Volume 7.1 fL (7.2-11.1) Neutrophils (%) (Auto) 79.8 % (39.4-72.5) Lymphocytes (%) (Auto) 13.5 % (17.6-49.6) Monocytes (%) (Auto) 5.4 % (4.1-12.4) Eosinophils (%) (Auto) 0.7 % (0.4-6.7) Basophils (%) (Auto) 0.6 % (0.3-1.4) Nucleated RBC Relative Count (auto) 0.0 /100WBC Neutrophils # (Auto) 7.8 K/uL (2.0-7.4) Lymphocytes # (Auto) 1.3 K/uL (1.3-3.6) Monocytes # (Auto) 0.5 K/uL (0.3-1.0) Eosinophils # (Auto) 0.1 K/uL (0.0-0.5) Basophils # (Auto) 0.1 K/uL (0.0-0.1) Nucleated RBC Absolute Count (auto) 0.00 K/uL Peripheral Blood Smear Yes Y/N Glomerular Filtration Rate Calc > 60.0 Calcium Level 9.4 mg/dl (8.4-10.2) Magnesium Level 2.1 mg/dl (1.7-2.2) Total Bilirubin 0.2 mg/dl (0.2-1.3) Aspartate Amino Transf (AST/SGOT) 27 U/L (0-35) Alanine Aminotransferase (ALT/SGPT) 26 U/L (0-56) Alkaline Phosphatase 77 U/L (0-126) Total Protein 6.7 gm/dl (6.3-8.2) Albumin 3.8 g/dl (3.5-5.0) Urine Color Yellow Urine Clarity Cloudy Urine pH 5.0 pH (4.8-9.5) Urine Specific Amorita 1.021 Urine Protein Negative mg/dL (NEGATIVE) Urine Glucose (UA) Negative mg/dL (NEGATIVE) Urine Ketones Trace mg/dL (NEGATIVE) Urine Blood Negative (NEGATIVE) Urine Nitrite Negative (NEGATIVE) Urine Bilirubin Negative (NEGATIVE) Urine Urobilinogen Negative mg/dL (0.2-1.9) Urine Leukocyte Esterase Negative (NEGATIVE) Urine RBC 1 /HPF (0-2/HPF) Urine WBC 23 /HPF (0-5/HPF) Urine Squamous Epithelial Cells None /LPF (</=FEW) Urine Bacteria Few /HPF (NONE-FEW) Urine Mucus None /HPF (NONE-FEW) Whole Blood Glucose 112 mg/DL (75-110) Toxicology Test 10/09/17 11:28 Urinalysis Test 10/09/17 11:30 Urine Color Yellow Urine Clarity Cloudy Urine pH 5.0 pH (4.8-9.5) Urine Specific Amorita 1.021 Urine Protein Negative mg/dL (NEGATIVE) Urine Glucose (UA) Negative mg/dL (NEGATIVE) Urine Ketones Trace mg/dL (NEGATIVE) Urine Blood Negative (NEGATIVE) Urine Nitrite Negative (NEGATIVE) Urine Bilirubin Negative (NEGATIVE) Urine Urobilinogen Negative mg/dL (0.2-1.9) Urine Leukocyte Esterase Negative (NEGATIVE) Urine RBC 1 /HPF (0-2/HPF) Urine WBC 23 /HPF (0-5/HPF) Urine Squamous Epithelial Cells None /LPF (</=FEW) Urine Bacteria Few /HPF (NONE-FEW) Urine Mucus None /HPF (NONE-FEW) EKG/Imaging Imaging Exam type: CHEST SINGLE AP History: Seizures Comparison: June 10, 2008. Findings: There is a dextroconvex curvature to the thoracic spine. There is no gross evidence of focal infiltrates or pleural effusions. The cardiac silhouette is normal in size. An air-fluid level is noted in the lower thorax in the midline. This could be within a hiatal hernia or dilated esophagus. IMPRESSION: 1. An air-fluid level is seen in the lower thorax in the midline. This could represent hiatal hernia or dilated esophagus. The latter is favored Report Dictated By: Heena Mccain MD at 10/09/2017 11:28 AM Report E-Signed By: Heena Mccain MD at 10/09/2017 11:33 AM ED Course/Re-evaluation ED Course Patient was admitted to exam room, history and physical were obtained. Differential diagnoses were considered. On examination lungs are clear, heart is regular, patient was having intermittent jerking with him raising his right arm. A CBC, CMP, chest x-ray, urinalysis were obtained. The x-ray was negative, other unremarkable except patient did have what appears to be a urinary tract infection, patient had 23 white blood cells per high-power field. I believe this is the underlying cause of the seizures. I did call [facility] and speak with urology there. I spoke with Dr. Beth, his recommendation was to start the patient on Keppra 1 g twice a day and watch him. If the seizures persist he recommended calling and talking with [facility] in [place] so they can continue to monitor the seizures. I discussed this with the patient's mother and caregivers. Patient's mother felt that was slightly over the top. We did watch him for hour and half. During that time he did have a persistent jerking with raising of the right arm, although did seem to decrease slightly while he was in the emergency room. I then called and spoke with Dr. Jovel, neurology at [facility]. He felt that transfer to [place] may be a little excessive, he recommended monitoring the patient continuing with the Keppra while treating the urinary tract infection. I spoke with Dr. Olivarez, hospitalist, who felt that admission would not be warranted in this case. He felt that if the patient's caregivers were comfortable watching him at home this could be done at home. He recommended following up with neurology sooner rather than later. I spoke with the patient' s mother and his caregivers. They did feel comfortable monitoring the patient at home. We will go ahead and discharge patient home at this time. We will have him take Keppra 1 g twice a day with his next dose being this evening. Patient also had 2 bouts of emesis as were getting ready to be discharged. I believe that is likely secondary to the Keppra and the fact that patient had not eaten today. Patient was given a dose of Zofran which seemed to help settle his stomach. Patient did receive a dose of IV Rocephin here in the emergency room. We will go ahead and discharge patient back to home with his caregivers. He is return if condition worsens. He is to follow-up with Dr. Pro, neurology, in [place] as soon as possible. Family verbalized understanding and agreement with plan. Decision to Disposition Date: October 09, 2017 Decision to Disposition Time: 15:22 Depart Departure Latest Vital Signs Vital Signs Date Time Temp Pulse Resp B/P (MAP) Pulse Ox O2 Delivery O2 Flow Rate FiO2 10/09/17 15:25 120 24 90 10/09/17 15:00 104/75 (85) 10/09/17 10:58 99.0 Room Air Impression: Primary Impression: Focal seizures Additional Impression: UTI (urinary tract infection) Condition: Improved Disposition: HOME OR SELF-CARE Referrals: PATRICK JOSE DO (PCP) New Scripts Ondansetron (ZOFRAN ODT) 4 Mg Tab.rapdis 4 MG PO Q6H Y for NAUSEA/VOMITING, #20 TAB.JIMMY Prov: CHRISTIAN BENAVIDES 10/09/17 Sulfamethoxazole/Trimet 800-160 Mg Tab (BACTRIM DS TABLET) 1 Each Tablet 1 TAB PO Q12H, #14 TAB Prov: CHRISTIAN BENAVIDES 10/09/17 Levetiracetam (KEPPRA) 1,000 Mg Tablet 1000 MG PO BID, #60 TAB Prov: CHRISTIAN BENAVIDES 10/09/17 Patient Instructions: Recurrent Seizures in Adults (ED) Additional Instructions: Increase fluid intake. Get plenty of rest. Take antibiotics and Keppra tonight. Return to the ER if condition worsens. Monitor for seizures, if having tonic-clonic (grand mal) seizures bring him back via ambulance. Follow up with Dr. Pro in the next week. Follow up with your primary care provider in the next week to make sure that the UTI has cleared up. Problem Qualifiers Additional Impression: UTI (urinary tract infection) Urinary tract infection type: acute cystitis Hematuria presence: without hematuria Qualified Codes: N30.00 - Acute cystitis without hematuria CHRISTIAN BENAVIDES PROCUREMENT COORDINATOR October 09, 2017 11:03
[2017-10-09] MEDS ORDERED: NS(*) 0.9% 1000 ML BAG 1,000 ML IV ONE (11:09)
[2017-10-09] MEDS ORDERED: LORazepam 2 MG/ML VIAL IVP ONE (11:10)
--- NOTE | 2017-10-09 11:39 | RADIOLOGY IMAGING REPORT ---
FACILITY: [facility] PATIENT NAME: Conner Dumont : 1970 MR: [id number] V: [id number] EXAM DATE: ORDERING PHYSICIAN: CHRISTIAN BENAVIDES TECHNOLOGIST: Location: [facility] [place] Patient: Conner Dumont : 1970 Visit/Account:[id number] Date of Sevice: 10/09/2017 Exam type: CHEST SINGLE AP History: Seizures Comparison: June 10, 2008. Findings: There is a dextroconvex curvature to the thoracic spine. There is no gross evidence of focal infiltr ates or pleural effusions. The cardiac silhouette is normal in size. An air-fluid level is noted in the lower thorax in the midline. This could be within a hiatal hernia or dilated esophagus. IMPRESSION: 1. An air-fluid level is seen in the lower thorax in the midline. This could represent hiatal herni a or dilated esophagus. The latter is favored Report Dictated By: Heena Mccain MD at 10/09/2017 11:28 AM Report E-Signed By: Heena Mccain MD at 10/09/2017 11:33 AM WSN:[id number]
[2017-10-09 11:53] LABS: PLATELET COUNT, AUTOMATED 321 K/uL (150-450)
[2017-10-09] MEDS ORDERED: levETIRAcetam 500 MG TAB PO ONE (12:55)
[2017-10-09] MEDS ORDERED: cefTRIAXone(*) 1 GM VIAL 1 GM in NS(*) 0.9% 100 ML ADDVANT BAG 100 ML IVPB ONE (13:15)
[2017-10-09 15:00] VITALS: BP 104/75
[2017-10-09] MEDS ORDERED: SULF-198 PO (15:20)
[2017-10-09] MEDS ORDERED: LEVE100047 PO (15:20)
[2017-10-09] MEDS ORDERED: ONDANSETRON 4 MG ODT TABDP SL ONE (15:35)
[2017-10-09] MEDS ORDERED: ONDA4TAB PO (15:39)
== END 2017-10-09 16:20 | disposition home or self-care (01) ==
LOC: ER 11:05
DX: G40.89 Other seizures (principal); N30.00 Acute cystitis without hematuria
CPT/HCPCS: 36416; 71045; 80175; 81001; 82948; 83735; 85025; 87088; 96361; 96365; 96375; 99284; A9270; J0696; J2060; J7030; J7050; Q0162; 82040; 82247; 82310; 82374; 82435; 82565; 82947; 84075; 84132; 84155; 84295; 84450; 84460; 84520; S0119

== ENCOUNTER → 2017-10-16 | Outpatient (REF) | payer MEDICARE, BC, MEDICAID ==
[~2017-10-16] MED LIST changes: +LEVE100047 PO; +SULF-198 PO
== END ==
LOC: ZZSENDIN 17:09
PROVIDERS: ATTEND Urology
DX: N39.0 Urinary tract infection, site not specified (principal)
CPT/HCPCS: 87088

== ENCOUNTER → 2017-11-15 | Outpatient (REF) | payer MEDICARE, BC, MEDICAID | LOC: ZZSENDIN 12:38 | PROVIDERS: ATTEND Urology | DX: N39.0 Urinary tract infection, site not specified (principal); B96.89 Other specified bacterial agents as the cause of diseases classified elsewhere | CPT/HCPCS: 81001; 87077; 87088; 87186 ==

== ENCOUNTER → 2018-01-22 | Outpatient (REF) | payer MEDICARE, BC, MEDICAID ==
[~2018-01-22] MED LIST changes: -FERR15DR22 PO; +FERR15DR3 PO
== END ==
LOC: ZZSENDIN 09:39
PROVIDERS: ATTEND Urology
DX: N39.0 Urinary tract infection, site not specified (principal); B95.2 Enterococcus as the cause of diseases classified elsewhere
CPT/HCPCS: 81001; 87077; 87088; 87186

== ENCOUNTER → 2018-02-27 | Outpatient (CLI) | payer MEDICARE, BC, MEDICAID ==
[~2018-02-27] MED LIST changes: +DENOSUMAB 60 MG/1 ML SYR SUBQ ONE
[2018-02-27 10:41] VITALS: BP 106/72
== END ==
LOC: SPU 07:30
PROVIDERS: ATTEND Family Medicine
DX: M81.8 Other osteoporosis without current pathological fracture (principal)
CPT/HCPCS: 96372; J0897

== ENCOUNTER → 2018-04-10 | Outpatient (REF) | payer MEDICARE, BC, MEDICAID ==
[~2018-04-10] MED LIST changes: -DENOSUMAB 60 MG/1 ML SYR SUBQ ONE; -HYDR-4309 PO; +HYDR-653 PO
== END ==
LOC: ZZSENDIN 13:29
PROVIDERS: ATTEND Urology
DX: N39.0 Urinary tract infection, site not specified (principal); B96.89 Other specified bacterial agents as the cause of diseases classified elsewhere
CPT/HCPCS: 81001; 87077; 87088; 87186

== ENCOUNTER → 2018-04-10 | Outpatient (CLI) | payer MEDICARE, BC, MEDICAID ==
--- NOTE | 2018-04-10 20:21 | RADIOLOGY IMAGING REPORT ---
FACILITY: [facility] PATIENT NAME: Conner Dumont : 1970 MR: [id number] V: [id number] EXAM DATE: ORDERING PHYSICIAN: PATRICK JOSE TECHNOLOGIST: Location: [facility] [place] Patient: Conner Dumont : 1970 Visit/Account:[id number] Date of Sevice: 04/10/2018 Technique: KNEE 3 VIEWS BILATERAL HISTORY: Bilateral knee pain Comparison studies: None FINDINGS: Left knee: There is no acute fracture. The alignment of the left knee is maintained. No knee joint ef fusion. Right knee: There is no acute fracture. The alignment of the right knee is maintained. No knee joint effusion. IMPRESSION: 1. No acute osseous process. Report Dictated By: Chirag Thurman DO at 04/10/2018 8:16 PM Report E-Signed By: Chirag Thurman DO at 04/10/2018 8:17 PM WSN:[id number]
== END ==
LOC: RAD 14:27
PROVIDERS: ATTEND Family Medicine
DX: M25.561 Pain in right knee (principal); M25.562 Pain in left knee

== ENCOUNTER → 2018-04-17 | Outpatient (REF) | payer MEDICARE, BC, MEDICAID | LOC: ZZSENDIN 14:00 | PROVIDERS: ATTEND Urology | DX: N39.0 Urinary tract infection, site not specified (principal); B96.89 Other specified bacterial agents as the cause of diseases classified elsewhere | CPT/HCPCS: 87077; 87088; 87186 ==

== ENCOUNTER 2018-05-12 10:08 | Emergency (ER) | payer MEDICARE, BC, MEDICAID ==
--- NOTE | 2018-05-12 10:12 | ER Report ---
History and Physical Time Seen By MD: 10:12 HPI/ROS CHIEF COMPLAINT: Right arm twitching HISTORY OF PRESENT ILLNESS: Patient is a 47-year-old male who resides at the [facility]; no history of seizures and was recently seen in October 2017 for myoclonic je rking to the right upper extremity. Patient additional history is obtained from caregiver. Caregiver states that for approximately one hour the patient was having myoclonic twitching to the right upper extremity. There was no loss of consciousness of change in mental status. Patient has no infectious type symptoms there is no reported fever or chills. Patient is not complaining of pain but does report some mild dizziness. The electronic medical record REVIEW OF SYSTEMS: Constitutional: No fever, no chills. Eyes: No discharge. ENT: No sore throat. Cardiovascular: No chest pain, no palpitations. Respiratory: No cough, no shortness of breath. Gastrointestinal: No abdominal pain, no vomiting. Genitourinary: No hematuria. Musculoskeletal: No back pain. Skin: No rashes. Neurological: No headache. Allergies: Coded Allergies: divalproex sodium (Verified Allergy, Unknown, 07/29/17) Home Meds Active Scripts Ondansetron (ZOFRAN ODT) 4 Mg Tab.rapdis, 4 MG PO Q6H PRN for NAUSEA/VOMITING, #20 TAB.JIMMY Prov:CHRISTIAN BENAVIDES 10/09/17 Sulfamethoxazole/Trimet 800-160 Mg Tab (BACTRIM DS TABLET) 1 Each Tablet, 1 TAB PO Q12H, #14 TAB Prov:CHRISTIAN BENAVIDES 10/09/17 Levetiracetam (KEPPRA) 1,000 Mg Tablet, 1000 MG PO BID, #60 TAB Prov:CHRISTIAN BENAVIDES 10/09/17 Lorazepam (ATIVAN) 0.5 Mg Tablet, 0.5 MG PO Q6H PRN for SEIZURE, #12 TAB 0 Refills Prov:VALE MONTGOMERY MD 07/29/17 Cephalexin Monohydrate (CEPHALEXIN) 500 Mg Cap, 500 MG PO TID, #21 CAP 0 Refills Prov:VALE MONTGOMERY MD 07/29/17 Sucralfate (CARAFATE) 1 Gm Tablet, 1 GM PO QID, #60 TAB Take before meals and at bedtime. Crush the tablet and mix with water before taking. Prov:CHRISTIAN BENAVIDES TUTOR 05/09/17 Reported Medications Phenazopyridine Hcl (URINARY PAIN RELIEF) 95 Mg Tablet, 95 MG PO TID 07/29/17 Hydrocodone/Acetaminophen 10/300 MG/15 ML (Lortab 10 mg-300 mg/15 ml Elxr) 473 Ml Solution, 10 ML PO PRN 07/29/17 Oxybutynin Chloride (OXYBUTYNIN CHLORIDE) 5 Mg/5 Ml Syrup, 5 MG PO PRN 07/29/17 [Acetaminophen] No Conflict Check 07/29/17 Tramadol Hcl (TRAMADOL HCL) 50 Mg Tablet, 50 MG PO UNKNOWN, TAB 07/29/17 Lidocaine HCl/Pf (Lidocaine 100 mg/5 ml (2%) Syr) 100 Mg/5 Ml (2 %) Syringe, 15 ML PO 07/29/17 Ondansetron (ZOFRAN ODT) 4 Mg Tab.rapdis, 4 MG PO Q6H PRN for NAUSEA, TAB.JIMMY 07/29/17 Amoxicillin (AMOXICILLIN) 500 Mg Capsule, 1 CAP PO PRN, #15 CAPSULE 07/29/17 Calcium Carbonate (TUMS) 300 Mg Tab.chew, 2 TAB PO PRN, TAB.CHEW 07/29/17 Duloxetine HCl (Duloxetine HCl) 60 Mg Capsule.dr, 30 MG QDAY 02/21/17 Saliva Stimulant Agents Comb.3 (BIOTENE MOISTURIZING MOUTH) 44.3 Ml Vowinckel, 44.3 ML MM, SPRAY 02/21/17 Cod Liver Oil/Zinc Oxide (DESITIN DIAPER RASH 40% PASTE) 28 Gm Paste..g., 28 GM TP PRN 11/10/16 Polyethylene Glycol 3350 (MIRALAX) 17 Gm Powd.pack, 17 GM PO QDAY, PKT 11/10/16 Dexlansoprazole (DEXILANT) 60 Mg Cap., 60 MG PO BID 11/10/16 Emollient Combination No.97 (Aquaphilic) 454 Gm Oint...g., QDAY 11/10/16 Polyeth Glycol/Propylene Glyco (SYSTANE 0.3-0.4% EYE DROPS) 0.05 Ml Soln, 0.05 ML OD DRY EYES 07/27/15 Docusate Sodium (SILACE) 50 Mg/5 Ml Liquid, 50 MG PO QDAY 07/27/15 Guaifenesin/Dm/Pseudoephedrine (ROBAFEN CF SYRUP) 118 Ml Syrup, 20 ML PO PRN for COUGH 07/27/15 Sodium Chloride (SALINE NASAL SPRAY) 30 Ml Vowinckel, 30 ML NS PRN PRN for AD, SPRAY 07/27/15 Naproxen Sodium (NAPROXEN SODIUM) 220 Mg Capsule, 220 MG PO Q12H PRN for PAIN, CAPSULE 07/27/15 Hydrocortisone Butyrate/Emoll (HYDROCORT BUTY 0.1% LIPID CRM) 45 Gm Cream..g., TOP PRN for ITCHING 07/26/15 Lactose-Free Food (ENSURE LIQUID) 237 Ml Liquid, 237 ML PO DAILY 07/26/15 Clobetasol Propionate/Emoll (CLOBETASOL EMOLLIENT 0.05% CRM) 15 Gm Cream..g., 0 TP BID 07/26/15 Aripiprazole (ABILIFY) 5 Mg Tablet, 5 MG PO QDAY, #10 TAB 07/26/15 Loperamide Hcl (LOPERAMIDE) 2 Mg Capsule, 2 MG PO PRN for DIARRHEA, CAPSULE 07/26/15 [Aftate] No Conflict Check, SPRAYS TOP PRN for RASH 07/26/15 Denosumab (PROLIA) 60 Mg/1 Ml Injs, 60 MG SUBQ [id number] 10/15/14 Lorazepam (ATIVAN) 0.5 Mg Tablet, 0.5 MG PO Q4-6H PRN for SEIZURE 10/15/14 Calcium Carbonate/Vitamin D3 (CALTRATE 600 + D TABLET) 1 Each Tablet, 1 EACH PO BID 10/15/14 Folic Acid (FOLIC ACID) 1 Mg Tablet, 1 MG PO QDAY, TAB 10/15/14 Menthol (BIOFREEZE) 118 Ml Gel..ml., 1 GEL TOP QDAY PRN for pain 09/26/14 Baclofen (BACLOFEN) 10 Mg Tablet, 10 MG PO TID, #30 TAB TAKE 2 TABLETS BY MOUTH THREE TIMES A DAY 09/26/14 Bacitracin (BACITRACIN ZINC) 0.9 Gm Oint, 0.9 GM TP QDAY PRN for wounds 09/26/14 Acetaminophen (ACETAMINOPHEN) 650 Mg/20.3 Ml Solution, 650 MG PO Q4-6H PRN for PAIN, ML 09/26/14 Lamotrigine (LAMICTAL) 200 Mg Tablet, 300 MG PO BID 01/14/13 Oxybutynin (Oxytrol) 1 Patch.bwk Patch.tdsw, 1 PATCH.BWK TD, 0 Refills 06/26/11 Phenobarbital (Phenobarbital) 32.4 Mg Tablet, 1 TAB PO QAM, 0 Refills 06/26/11 Past Medical/Surgical History Patient has past medical history of cerebral palsy, seizures, reflux, hiatal hernia, scoliosis, osteoporosis, depression. Patient has surgical history of cyst removed from right forearm, adenoidectomy, right hip replacement, abductor release, bone graft. Hx Smoking: No Smoking Status: Never Smoker Exposure to Second Hand Smoke?: No Hx Substance Use Disorder: No Hx Alcohol Use: No Constitutional Vital Sign - Last 24 Hours 05/12/18 10:16 Temp 98.9 Pulse 109 Resp 16 B/P (MAP) 129/87 Pulse Ox 90 O2 Delivery Room Air Physical Exam General Appearance: The patient is alert, has no immediate need for airway protection and no current signs of toxicity. ENT: Tympanic membranes are pearly-myers, auditory canals are patent, mucous membranes are moist. Respiratory: Chest is non tender, lungs are clear to auscultation. Cardiac: regular rate and rhythm Gastrointestinal: Abdomen is soft and non tender, no masses, bowel sounds normal. Musculoskeletal: Neck: Neck is supple and non tender. Extremities have full range of motion and are non tender. Skin: No rashes or lesions. Neuro: Patient is alert and oriented, he does respond to questions, he does have intermittent jerking of the right arm, there is no loss consciousness and there is no postictal phase. Medical Decision Making Data Points Result Diagram: 05/12/18 1015 05/12/18 1015 Laboratory Hematology Test 05/12/18 10:15 05/12/18 11:00 Red Blood Count 4.41 M/uL (4.00-5.60) Mean Corpuscular Volume 61.0 fL (80.0-96.0) Mean Corpuscular Hemoglobin 17.4 pg (26.0-33.0) Mean Corpuscular Hemoglobin Concent 28.5 g/dL (32.0-36.0) Red Cell Distribution Width 17.5 % (11.5-14.5) Mean Platelet Volume 7.0 fL (7.2-11.1) Neutrophils (%) (Auto) 85.5 % (39.4-72.5) Lymphocytes (%) (Auto) 7.8 % (17.6-49.6) Monocytes (%) (Auto) 5.9 % (4.1-12.4) Eosinophils (%) (Auto) 0.4 % (0.4-6.7) Basophils (%) (Auto) 0.4 % (0.3-1.4) Nucleated RBC Relative Count (auto) 0.0 /100WBC Neutrophils # (Auto) 10.2 K/uL (2.0-7.4) Lymphocytes # (Auto) 0.9 K/uL (1.3-3.6) Monocytes # (Auto) 0.7 K/uL (0.3-1.0) Eosinophils # (Auto) 0.1 K/uL (0.0-0.5) Basophils # (Auto) 0.0 K/uL (0.0-0.1) Nucleated RBC Absolute Count (auto) 0.00 K/uL Peripheral Blood Smear Yes Y/N Urine Color Yellow Urine Clarity Cloudy Urine pH 7.0 pH (4.8-9.5) Urine Specific Seth 1.015 Urine Protein Negative mg/dL (NEGATIVE) Urine Glucose (UA) Negative mg/dL (NEGATIVE) Urine Ketones Negative mg/dL (NEGATIVE) Urine Blood Negative (NEGATIVE) Urine Nitrite Negative (NEGATIVE) Urine Bilirubin Negative (NEGATIVE) Urine Urobilinogen Negative mg/dL (0.2-1.9) Urine Leukocyte Esterase Trace (NEGATIVE) Urine RBC None /HPF (0-2/HPF) Urine WBC 13 /HPF (0-5/HPF) Urine Squamous Epithelial Cells None /LPF (</=FEW) Urine Amorphous Crystals Few /HPF Urine Bacteria Few /HPF (NONE-FEW) Urine Mucus Few /HPF (NONE-FEW) Sodium Level 144 mmol/L (137-145) Potassium Level 4.0 mmol/L (3.5-5.0) Chloride Level 106 mmol/L (98-107) Carbon Dioxide Level 28 mmol/L (22-30) Blood Urea Nitrogen 18 mg/dl (9-21) Creatinine 0.70 mg/dl (0.66-1.25) Glomerular Filtration Rate Calc > 60.0 Random Glucose 99 mg/dl (75-110) Calcium Level 9.3 mg/dl (8.4-10.2) Magnesium Level 2.2 mg/dl (1.7-2.2) Total Bilirubin 0.1 mg/dl (0.2-1.3) Aspartate Amino Transf (AST/SGOT) 25 U/L (0-35) Alanine Aminotransferase (ALT/SGPT) 25 U/L (0-56) Alkaline Phosphatase 60 U/L (0-126) Total Protein 6.6 g/dl (6.3-8.2) Albumin 3.7 g/dl (3.5-5.0) Stool Occult Blood (IFOB) Negative (NEGATIVE) Chemistry Test 05/12/18 10:15 05/12/18 11:00 White Blood Count 12.0 k/uL (4.5-11.0) Red Blood Count 4.41 M/uL (4.00-5.60) Hemoglobin 7.7 g/dL (14.0-18.0) Hematocrit 26.9 % (42.0-52.0) Mean Corpuscular Volume 61.0 fL (80.0-96.0) Mean Corpuscular Hemoglobin 17.4 pg (26.0-33.0) Mean Corpuscular Hemoglobin Concent 28.5 g/dL (32.0-36.0) Red Cell Distribution Width 17.5 % (11.5-14.5) Platelet Count 406 K/uL (150-450) Mean Platelet Volume 7.0 fL (7.2-11.1) Neutrophils (%) (Auto) 85.5 % (39.4-72.5) Lymphocytes (%) (Auto) 7.8 % (17.6-49.6) Monocytes (%) (Auto) 5.9 % (4.1-12.4) Eosinophils (%) (Auto) 0.4 % (0.4-6.7) Basophils (%) (Auto) 0.4 % (0.3-1.4) Nucleated RBC Relative Count (auto) 0.0 /100WBC Neutrophils # (Auto) 10.2 K/uL (2.0-7.4) Lymphocytes # (Auto) 0.9 K/uL (1.3-3.6) Monocytes # (Auto) 0.7 K/uL (0.3-1.0) Eosinophils # (Auto) 0.1 K/uL (0.0-0.5) Basophils # (Auto) 0.0 K/uL (0.0-0.1) Nucleated RBC Absolute Count (auto) 0.00 K/uL Peripheral Blood Smear Yes Y/N Urine Color Yellow Urine Clarity Cloudy Urine pH 7.0 pH (4.8-9.5) Urine Specific Seth 1.015 Urine Protein Negative mg/dL (NEGATIVE) Urine Glucose (UA) Negative mg/dL (NEGATIVE) Urine Ketones Negative mg/dL (NEGATIVE) Urine Blood Negative (NEGATIVE) Urine Nitrite Negative (NEGATIVE) Urine Bilirubin Negative (NEGATIVE) Urine Urobilinogen Negative mg/dL (0.2-1.9) Urine Leukocyte Esterase Trace (NEGATIVE) Urine RBC None /HPF (0-2/HPF) Urine WBC 13 /HPF (0-5/HPF) Urine Squamous Epithelial Cells None /LPF (</=FEW) Urine Amorphous Crystals Few /HPF Urine Bacteria Few /HPF (NONE-FEW) Urine Mucus Few /HPF (NONE-FEW) Glomerular Filtration Rate Calc > 60.0 Calcium Level 9.3 mg/dl (8.4-10.2) Magnesium Level 2.2 mg/dl (1.7-2.2) Total Bilirubin 0.1 mg/dl (0.2-1.3) Aspartate Amino Transf (AST/SGOT) 25 U/L (0-35) Alanine Aminotransferase (ALT/SGPT) 25 U/L (0-56) Alkaline Phosphatase 60 U/L (0-126) Total Protein 6.6 g/dl (6.3-8.2) Albumin 3.7 g/dl (3.5-5.0) Stool Occult Blood (IFOB) Negative (NEGATIVE) Urinalysis Test 05/12/18 10:15 Urine Color Yellow Urine Clarity Cloudy Urine pH 7.0 pH (4.8-9.5) Urine Specific Seth 1.015 Urine Protein Negative mg/dL (NEGATIVE) Urine Glucose (UA) Negative mg/dL (NEGATIVE) Urine Ketones Negative mg/dL (NEGATIVE) Urine Blood Negative (NEGATIVE) Urine Nitrite Negative (NEGATIVE) Urine Bilirubin Negative (NEGATIVE) Urine Urobilinogen Negative mg/dL (0.2-1.9) Urine Leukocyte Esterase Trace (NEGATIVE) Urine RBC None /HPF (0-2/HPF) Urine WBC 13 /HPF (0-5/HPF) Urine Squamous Epithelial Cells None /LPF (</=FEW) Urine Amorphous Crystals Few /HPF Urine Bacteria Few /HPF (NONE-FEW) Urine Mucus Few /HPF (NONE-FEW) ED Course/Re-evaluation ED Course 05/12/2018 10:35:01 am no current twitching or seizure activity noted. We'll ru n screening tests and urinalysis and the last visit patient had a urinary tract infection. No further seizure activity workup is otherwise unremarkable. Patient did have a low hemoglobin of 7.7. Hemoccult was tested and was negative. I do not believe that the anemia is related to the myoclonic jerking that he had this morning. I explained to patient as well as caregiver he will need to follow-up with his primary care provider in approximately one month for repeat blood testing and possible workup for anemia. Decision to Disposition Date: May 12, 2018 Decision to Disposition Time: 11:47 Depart Departure Latest Vital Signs Vital Signs Date Time Temp Pulse Resp B/P (MAP) Pulse Ox O2 Delivery O2 Flow Rate FiO2 05/12/18 10:16 98.9 109 16 129/87 90 Room Air Impression: Primary Impression: Myoclonic epilepsy Additional Impression: Anemia Condition: Improved Disposition: HOME OR SELF-CARE Referrals: PATRICK JOSE DO (PCP) Follow-up within the next 4-6 weeks for repeat blood testing and possible workup for anemia (low blood counts) Patient Instructions: Anemia (DC), Recurrent Seizures in Adults (DC) Additional Instructions: Call your primary care provider to schedule a follow-up appointment in the next 4-6 weeks for further testing for anemia (low blood counts). If you develop b lack or tarry stools or severe abdominal pain at any time he should return to the emergency department for further evaluation. Your hemoglobin level today was 7.7 normal range is 10-13. Problem Qualifiers Additional Impression: Anemia Anemia type: unspecified type Qualified Codes: D64.9 - Anemia, unspecified CHRISTIANO STOKES MD May 12, 2018 10:12
[2018-05-12 10:30] LABS: PLATELET COUNT, AUTOMATED 406 K/uL (150-450)
[2018-05-12 11:45] VITALS: BP 115/75
== END 2018-05-12 12:02 | disposition home or self-care (01) ==
LOC: ER 10:46
DX: G40.409 Other generalized epilepsy and epileptic syndromes, not intractable, without status epilepticus (principal); D64.9 Anemia, unspecified
CPT/HCPCS: 81001; 82040; 82247; 82274; 82310; 82374; 82435; 82565; 82947; 83735; 84075; 84132; 84155; 84295; 84450; 84460; 84520; 85025; 87088; 99282

== ENCOUNTER 2018-06-24 12:00 | Outpatient (RCR) | payer MEDICARE, BC, MEDICAID ==
[2018-06-10 12:06] VITALS: BP 114/65
[2018-06-10] MEDS: LIDOCAINE/SOD BICARB 8.4% SYR ID PRN (12:47)
[2018-06-10] MEDS: NS(*) 0.9% 100 ML BAG 100 ML IVPB PRN (12:49)
[2018-06-10 13:27] VITALS: BP 117/79
[2018-06-13 11:51] VITALS: BP 112/74
[2018-06-13] MEDS: LIDOCAINE/SOD BICARB 8.4% SYR ID PRN (12:05)
[2018-06-13] MEDS: NS(*) 0.9% 100 ML BAG 100 ML IVPB PRN (12:05)
[2018-06-13 12:40] VITALS: BP 112/63
[2018-06-17 13:11] VITALS: BP 111/74
[2018-06-17] MEDS: LIDOCAINE/SOD BICARB 8.4% SYR ID PRN (14:22)
[2018-06-17] MEDS: NS(*) 0.9% 100 ML BAG 100 ML IVPB PRN (14:23)
[2018-06-17 14:24] VITALS: BP 101/59
[2018-06-20 11:59] VITALS: BP_SYST 110; BP_SYST 111; BP_DIAS 73; BP_DIAS 82
[2018-06-20] MEDS: LIDOCAINE/SOD BICARB 8.4% SYR ID PRN (12:34)
[2018-06-20 13:14] VITALS: BP 109/68
[~2018-06-24 12:00] MED LIST changes: +DEXTROSE 5%(*) 100 ML BAG 100 ML IVPB PRN; -FERR15DR3 PO; +FERR15DR4 PO; +IRON SUCROSE 100 MG/5 ML VIAL 200 MG in NS(*) 0.9% 100 ML BAG 100 ML IVPB ONE; +IRON SUCROSE 100 MG/5 ML VIAL 200 MG in NS(*) 0.9% 100 ML BAG 100 ML IVPB PRN; -NAPR220C11 PO; +NAPR220C62 PO
[2018-06-24 12:22] VITALS: BP 96/71
[2018-06-24] MEDS: LIDOCAINE/SOD BICARB 8.4% SYR ID PRN (12:29)
[2018-06-24] MEDS: NS(*) 0.9% 100 ML BAG 100 ML IVPB PRN (12:29)
[2018-06-24] MEDS ORDERED: IRON SUCROSE 100 MG/5 ML VIAL 200 MG in NS(*) 0.9% 100 ML BAG 100 ML IVPB ONE (13:00)
== END 2018-09-05 ==
LOC: SPU 12:00
PROVIDERS: ATTEND Family Medicine
DX: D50.9 Iron deficiency anemia, unspecified (principal)
CPT/HCPCS: 96365; J1756; J7050

== ENCOUNTER → 2018-07-11 | Outpatient (REF) | payer MEDICARE, BC, MEDICAID ==
[~2018-07-11] MED LIST changes: -DEXTROSE 5%(*) 100 ML BAG 100 ML IVPB PRN; -IRON SUCROSE 100 MG/5 ML VIAL 200 MG in NS(*) 0.9% 100 ML BAG 100 ML IVPB ONE; -IRON SUCROSE 100 MG/5 ML VIAL 200 MG in NS(*) 0.9% 100 ML BAG 100 ML IVPB PRN; +NAPR220C11 PO; -NAPR220C62 PO
== END ==
LOC: ZZSENDIN 16:15
PROVIDERS: ATTEND Family Medicine
DX: R30.0 Dysuria (principal)
CPT/HCPCS: 81001

== ENCOUNTER → 2018-08-27 | Outpatient (CLI) | payer MEDICARE, BC, MEDICAID ==
[~2018-08-27] MED LIST changes: +DENOSUMAB 60 MG/1 ML SYR SUBQ ONE; -NAPR220C11 PO; +NAPR220C62 PO
[2018-08-27 09:45] VITALS: BP 99/70
== END ==
LOC: SPU 08:42
PROVIDERS: ATTEND Family Medicine
DX: M81.8 Other osteoporosis without current pathological fracture (principal)
CPT/HCPCS: 96372; J0897

== ENCOUNTER 2018-09-19 11:51 | Outpatient (RCR) | payer MEDICARE, BC, MEDICAID ==
[2018-09-06 13:17] VITALS: BP 104/81
[2018-09-06] MEDS: LIDOCAINE/SOD BICARB 8.4% SYR ID PRN (13:28)
[2018-09-06] MEDS: NS(*) 0.9% 100 ML BAG 100 ML IVPB PRN (13:29)
[2018-09-06 13:56] VITALS: BP 100/65
[2018-09-09 12:58] VITALS: BP 113/78
[2018-09-09] MEDS: LIDOCAINE/SOD BICARB 8.4% SYR ID PRN ×2 (13:04→13:08)
[2018-09-09] MEDS: NS(*) 0.9% 100 ML BAG 100 ML IVPB PRN ×2 (13:04→13:08)
[2018-09-09 13:44] VITALS: BP 107/74
[2018-09-12 12:49] VITALS: BP 115/64
[2018-09-12] MEDS: LIDOCAINE/SOD BICARB 8.4% SYR ID PRN (13:04)
[2018-09-12] MEDS: NS(*) 0.9% 100 ML BAG 100 ML IVPB PRN (13:05)
[2018-09-16 14:28] VITALS: BP 110/75
[2018-09-16] MEDS: NS(*) 0.9% 100 ML BAG 100 ML IVPB PRN (14:31)
[2018-09-16] MEDS: LIDOCAINE/SOD BICARB 8.4% SYR ID PRN (14:31)
[2018-09-16 15:12] VITALS: BP 115/71
[~2018-09-19 11:51] MED LIST changes: -DENOSUMAB 60 MG/1 ML SYR SUBQ ONE; +DEXTROSE 5%(*) 100 ML BAG 100 ML IVPB PRN; +IRON SUCROSE 100 MG/5 ML VIAL 200 MG in NS(*) 0.9% 100 ML BAG 100 ML IVPB ONE; -OMEP-125 PO; +OMEP-126 PO
[2018-09-19 11:57] VITALS: BP 111/69
[2018-09-19] MEDS ORDERED: IRON SUCROSE 100 MG/5 ML VIAL 200 MG in NS(*) 0.9% 100 ML BAG 100 ML IVPB ONE (12:00)
[2018-09-19] MEDS: LIDOCAINE/SOD BICARB 8.4% SYR ID PRN (12:06)
[2018-09-19] MEDS: NS(*) 0.9% 100 ML BAG 100 ML IVPB PRN (12:07)
== END 2018-11-04 16:40 | disposition home or self-care (01) ==
LOC: SPU 11:51
PROVIDERS: ATTEND Family Medicine
DX: D50.9 Iron deficiency anemia, unspecified (principal)
CPT/HCPCS: 96365; J1756; J7050